=== PATIENT | female | born 1965 | race Hispanic/Latino ===

== ENCOUNTER → 2017-03-23 | Day surgery (SDC) | payer OTHER ==
[~2017-03-23] MED LIST: ASPIR 8181 MG PO; LEVOTHYROXINE PO; LEVOTHYROXINE50 MCG PO; LISINOPRIL-HCT1 EAC1 PO; METOPROLOL TART50 MG PO; MIDAZOLAM HCL 2 MG/2 ML VIAL ONE; PROPOFOL IV EMULSION 10 MG/ML 20 ML VIAL ONE; TYLENOL WITH C1 EACH PO
== END | disposition home or self-care (01) ==
LOC: OR 11:45
PROVIDERS: ATTEND Internal Medicine Gastroenterology
DX: Z12.11 Encounter for screening for malignant neoplasm of colon (principal); E66.01 Morbid (severe) obesity due to excess calories; I10 Essential (primary) hypertension; R76.8 Other specified abnormal immunological findings in serum; R74.0 Nonspecific elevation of levels of transaminase and lactic acid dehydrogenase [LDH]; K76.0 Fatty (change of) liver, not elsewhere classified; J45.909 Unspecified asthma, uncomplicated; G47.30 Sleep apnea, unspecified; Z01.810 Encounter for preprocedural cardiovascular examination; Z79.82 Long term (current) use of aspirin; Z68.41 Body mass index [BMI] 40.0-44.9, adult; Z87.891 Personal history of nicotine dependence
CPT/HCPCS: 45378; 81025; 93005; J2250

== ENCOUNTER → 2018-10-09 | Day surgery (SDC) | payer OTHER ==
[2018-10-07 10:40] LABS: BASOPHILS % 0.4 % (0.0-1.0); EOSINOPHILS # (AUTO) 0.3 (0.0-0.4); EOSINOPHILS % 3.6 % (0.0-6.0); HEMATOCRIT 37.9 % (34.2-44.1); LYMPHOCYTES # (AUTO) 2.1 (1.0-3.2); LYMPHOCYTES % 29.1 % (18.0-39.1); MEAN CORPUSCULAR HEMOGLOBIN 26.9 pg (28-32); MEAN CORPUSCULAR HGB CONC 31.7 g/dL (31-35); MONOCYTES # (AUTO) 0.5 (0.2-0.8); MONOCYTES % 6.5 % (4.4-11.3); NEUTROPHILS # (AUTO) 4.3 (2.1-6.9); NEUTROPHILS % 60.1 % (38.7-80.0); PLATELET COUNT 251 x10e3/uL (140-360); RED BLOOD COUNT 4.46 x10e6/uL (3.6-5.1); RED CELL DISTRIBUTION WIDTH 13.7 % (11.7-14.4)
[2018-10-07 10:51] LABS: INR 0.88; PROTHROMBIN TIME 12.4 seconds (11.9-14.5)
[2018-10-07 10:58] LABS: ALANINE AMINOTRANSFERASE 62 IU/L (0-55); ALBUMIN 4.1 g/dL (3.5-5.0); ALBUMIN/GLOBULIN RATIO 0.9 (0.8-2.0); ALKALINE PHOSPHATASE 137 IU/L (40-150); ANION GAP 14.2 mmol/L (8-16); BLOOD UREA NITROGEN 10 mg/dL (7-26); BUN/CREATININE RATIO 11 (6-25); CALCIUM 10.5 mg/dL (8.4-10.2); CARBON DIOXIDE 33 mmol/L (22-29); CHLORIDE 98 mmol/L (98-107); CREATININE, SERUM 0.87 mg/dL (0.57-1.11); EST GLOMERULAR FILTRATION RATE > 60 ML/MIN (60-); GLUCOSE 118 mg/dL (74-118); POTASSIUM 3.2 mmol/L (3.5-5.1); SODIUM 142 mmol/L (136-145)
[2018-10-09] VITALS (9 sets, daily range): BP systolic 102–127; BP diastolic 66–81
[~2018-10-09] VITALS: Ht 157.5 cm; Wt 99.8 kg
[~2018-10-09] MED LIST changes: +CARDIZEM120 MG PO; +FENTANYL CITRATE/PF 100MCG/2 ML INJ ONE; +FLONASE; +HEPARIN SOD/SOD CHLORIDE 2,000 ML ONE; +IOPAMIDOL 370 MG/ML 200 ML INFUS..BTL INJ ONE; +LIDOCAINE HCL 2% LOCAL 20 ML VIAL ONE; +LOSARTAN POTAS100 MG PO; +NAPROXEN250 MG PO; +PANTOPRAZOLE SO40 MG PO; +PEPCID20 MG PO; +PRAVACHOL40 MG PO; +PRAVASTATIN SOD80 MG PO; +PROAIR HFA INH8.5 GM INH; -PROPOFOL IV EMULSION 10 MG/ML 20 ML VIAL ONE; +SODIUM CHLORIDE 0.9% 1000ML 1,000 ML ONE; +SYMBICORT 16010.2 GM INH; +TORSEMIDE10 MG PO; +VERAPAMIL HCL 2.5 MG/ML 2 ML VIAL ONE
--- OUTSIDE RECORDS SUMMARY | 2018-10-09 08:24 | XMS REPORT ---
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 Info Not Available Non Drug Allergy Problems Problem Type Condition Code Onset Dates Condition Status Problem Essential (primary) hypertension I10 Active Problem Hypothyroidism E03.9 Active Problem Hepatitis C B19.20 Active Problem Other polyneuropathy G62.89 Active Problem Other and unspecified hyperlipidemia E78.5 Active Problem BMI 40.0-44.9, adult Z68.41 Active Problem Abnormal LFTs R79.89 Active Problem Body mass index (BMI) of 40.1 to 44.9 in adult Z68.41 Active Problem Morbid obesity, unspecified obesity type E66.01 Active Problem Prediabetes R73.03 Active Assessment Prediabetes R73.03 Active Assessment Hepatitis C B19.20 Active Assessment Other polyneuropathy G62.89 Active Assessment Essential (primary) hypertension I10 Active Problem Hypertensive heart disease I11.9 Active Assessment Hypothyroidism E03.9 Active Problem Abnormal EKG R94.31 Active Assessment Hypertensive heart disease I11.9 Active Problem Contact dermatitis L25.9 Active Medications Medication Code System Code Instructions Start Date End Date Status Dosage Flonase NDC 0 50 MCG/DOSE Nasally Once a day September 07, 2016 Active 1 spray in each nostril Levothyroxine Sodium [facility] [address]-99 50 MCG Orally Once a day August 02, 2015 Active 1 tablet Zithromax [facility] [address]-79 250 MG Orally Once a day Active 2 tablets on the first day, then 1 tablet daily for 4 days PredniSONE [facility] [address]-20 20 MG Orally Once a day Active 1 tablet Lisinopril-Hydrochlorothiazide [facility] [address]-88 20-25 MG Orally twice a day August 30, 2016 Active 1 tablet Aspirin [facility] [address]-73 81 MG Active TAKE 1 TABLET BY MOUTH ONCE DAILY ProAir HFA [facility] [address]-06 108 (90 Base) MCG/ACT Inhalation every 4 hrs Active 2 puffs as needed Metoprolol Succinate ER [facility] [address]-78 25 MG Orally twice a day (bid) Active 1 tablet Vital Signs Date/Time: Jan 02, 2017 BMI 40.95 Index Weight 229 lbs Height 62.7 in Temperature 98.0 F Cardiac Monitoring Heart Rate 65 /min Blood Pressure Diastolic 77 mm Hg Blood Pressure Systolic 124 mm Hg Results No Known Results Summary Purpose eClinicalWorks Submission
--- OUTSIDE RECORDS SUMMARY | 2018-10-09 08:24 | XMS REPORT ---
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 [address]-58 20-25 MG Orally twice a day August 30, 2016 Active [address] [facility] [address]-64 81 MG by mouth every day (qd) Active TAKE 1 TABLET BY MOUTH ONCE DAILY Metoprolol Succinate ER [facility] [address]-01 25 MG Orally twice a day (bid) Active 1 tablet Levothyroxine Sodium [facility] [address]-56 50 MCG Orally Once a day August 02, 2015 Active 1 tablet Results No Known Results Summary Purpose eClinicalWorks Submission
--- OUTSIDE RECORDS SUMMARY | 2018-10-09 08:24 | XMS REPORT ---
Author Author Trevor Zamudio Organization [employer] Address Unknown Phone Unavailable Care Team Providers Care Cena Name Role Phone Trevor Zamudio CP Unavailable Allergies, Adverse Reactions, Alerts Substance Reaction Event Type N.K.D.A. Info Not Available Non Drug Allergy Problems Problem Type Condition Code Onset Dates Condition Status Problem Contact dermatitis L25.9 Active Problem Hepatitis C B19.20 Active Problem Essential (primary) hypertension I10 Active Problem Other and unspecified hyperlipidemia E78.5 Active Problem Morbid obesity, unspecified obesity type E66.01 Active Problem BMI 40.0-44.9, adult Z68.41 Active Problem Body mass index (BMI) of 40.1 to 44.9 in adult Z68.41 Active Problem Hypothyroidism E03.9 Active Problem Prediabetes R73.03 Active Problem Abnormal LFTs R79.89 Active Assessment Wart of scalp B07.9 Active Assessment Essential (primary) hypertension I10 Active Assessment Bilateral otitis media, unspecified chronicity, unspecified otitis media type H66.93 Active Assessment Morbid obesity, unspecified obesity type E66.01 Active Problem Hypertensive heart disease I11.9 Active Assessment Hypothyroidism E03.9 Active Problem Abnormal EKG R94.31 Active Medications Medication Code System Code Instructions Start Date End Date Status Dosage Flonase NDC 0 50 MCG/DOSE Nasally Once a day September 07, 2016 Active 1 spray in each nostril Levaquin [facility] [address]-83 500 MG Orally Once a day October 05, 2016 October 15, 2016 Active 1 tablet Medrol (De) NDC 0 4 MG Orally as directed October 05, 2016 October 11, 2016 Active as directed ProAir HFA [facility] [address]-52 108 (90 Base) MCG/ACT Inhalation every 4 hrs Active 2 puffs as needed Levothyroxine Sodium [facility] [address]-27 50 MCG Orally Once a day August 02, 2015 Active 1 tablet Metoprolol Succinate NDC 0 50 MG Orally Active not defined Metoprolol Succinate ER [facility] [address]-73 25 MG Orally twice a day (bid) Active 1 tablet Lisinopril-Hydrochlorothiazide [facility] [address]-50 20-25 MG Orally twice a day August 30, 2016 Active 1 tablet Aspirin [facility] [address]-92 81 MG Active TAKE 1 TABLET BY MOUTH ONCE DAILY Vital Signs Date/Time: October 05, 2016 BMI 40.77 Index Weight 228.0 lbs Height 62.7 in Temperature 98.2 F Cardiac Monitoring Heart Rate 62 /min Blood Pressure Diastolic 88 mm Hg Blood Pressure Systolic 148 mm Hg Results No Known Results Summary Purpose eClinicalWorks Submission
--- OUTSIDE RECORDS SUMMARY | 2018-10-09 08:24 | XMS REPORT ---
Author Author Trevor Zamudio Organization [employer] Address Unknown Phone Unavailable Care Team Providers Care Mixer Operator Tablets Name Role Phone Trevor Zamudio CP Unavailable Allergies No Known Allergies Problems Problem Type Condition Code Onset Dates Condition Status Problem Hepatitis C B19.20 Active Problem Abnormal LFTs R79.89 Active Problem Body mass index (BMI) of 40.1 to 44.9 in adult Z68.41 Active Problem Acute on chronic diastolic HF (heart failure) I50.33 Active Problem Seasonal allergic rhinitis due to other allergic trigger J30.89 Active Problem FIDEL (obstructive sleep apnea) G47.33 Active Problem Morbid obesity, unspecified obesity type E66.01 Active Problem Other and unspecified hyperlipidemia E78.5 Active Problem Other polyneuropathy G62.89 Active Problem Prediabetes R73.03 Active Problem Contact dermatitis L25.9 Active Problem Hypertensive heart disease I11.9 Active Problem Abnormal EKG R94.31 Active Problem Essential (primary) hypertension I10 Active Problem Hypothyroidism E03.9 Active Medications No Known Medications Results No Known Results Summary Purpose eClinicalWorks Submission
--- OUTSIDE RECORDS SUMMARY | 2018-10-09 08:24 | XMS REPORT | Continuity of Care Document ---
Author Author [facility] Interface Address Unknown Phone Unavailable Problems Problem Status Onset Date Classification Date Reported Comments Source XRAY Active 09/21/2017 [facility] Pain in right hip 09/11/2017 01/10/2018 [facility] R HIP Active 09/03/2017 [facility] Abnormal EKG Active Problem 09/10/2018 2.16.840.1.428768.4.391.11.78978 Hypothyroidism Active Problem 09/10/2018 2.16.840.1.244428.4.391.11.85622 Hepatitis C Active Problem 09/10/2018 2.16.840.1.884939.4.391.11.20116 Other polyneuropathy Active Problem 09/10/2018 2.16.840.1.935230.4.391.11.14783 Prediabetes Active Problem 09/10/2018 2.16.840.1.985937.4.391.11.75081 Abnormal LFTs Active Problem 09/10/2018 2.16.840.1.516048.4.391.11.54169 Body mass index of 40.1 to 44.9 in adult Active Problem 09/10/2018 2.16.840.1.639904.4.391.11.55476 Other and unspecified hyperlipidemia Active Problem 09/10/2018 2.16.840.1.206443.4.391.11.19465 Morbid obesity, unspecified obesity type Active Problem 09/10/2018 2.16.840.1.364937.4.391.11.51194 Essential hypertension Active Problem 09/10/2018 2.16.840.1.665031.4.391.11.47265 Contact dermatitis Active Problem 09/10/2018 2.16.840.1.154837.4.391.11.27725 Hypertensive heart disease Active Problem 09/10/2018 2.16.840.1.350049.4.391.11.91217 Wart of scalp Active Diagnosis 10/17/2016 2.16.840.1.091476.4.391.11.13555 Bilateral otitis media, unspecified chronicity, unspecified otitis media type Active Diagnosis 01/27/2017 2.16.840.1.321558.4.391.11.00507 Bronchitis Active Diagnosis 11/16/2016 2.16.840.1.111350.4.391.11.45350 Seasonal allergic rhinitis due to other allergic trigger Active Problem 09/10/2018 2.16.840.1.157048.4.391.11.69767 Sciatica associated with disorder of lumbar spine Active Diagnosis 10/10/2017 2.16.840.1.460120.4.391.11.83780 Sciatica associated with disorder of lumbar spine Active Diagnosis 09/28/2017 2.16.840.1.951709.4.391.11.49796 Encounter for general adult medical examination with abnormal findings Active Diagnosis 09/06/2017 2.16.840.1.847529.4.391.11.83077 Cardiomyopathy Active Diagnosis 08/14/2015 2.16.840.1.459542.4.391.11.61089 Abnormal liver function Active Diagnosis 07/27/2015 2.16.840.1.692745.4.391.11.34706 Acute on chronic diastolic HF Active Problem 09/10/2018 2.16.840.1.679718.4.391.11.14776 FIDEL Active Problem 09/10/2018 2.16.840.1.895339.4.391.11.19264 Obesity Active Diagnosis 07/23/2015 2.16.840.1.668019.4.391.11.55665 Knee pain Active Diagnosis 07/23/2015 2.16.840.1.541901.4.391.11.49209 Encounter for immunization Active Diagnosis 03/11/2016 2.16.840.1.393473.4.391.11.22019 Moderate persistent asthma with exacerbation Active Diagnosis 11/13/2017 2.16.840.1.747989.4.391.11.38924 Acute serous otitis media of right ear without rupture Active Diagnosis 04/14/2016 2.16.840.1.101274.4.391.11.07846 Pure hypercholesterolemia Active Problem 04/14/2016 2.16.840.1.036892.4.391.11.02764 Impacted cerumen of right ear Active Diagnosis 04/14/2016 2.16.840.1.272083.4.391.11.21732 Acute bronchitis, antibiotics not indicated Active Diagnosis 04/14/2016 2.16.840.1.599962.4.391.11.00826 Otitis media, unspecified chronicity, unspecified laterality, unspecified otitis media type Active Diagnosis 09/18/2016 2.16.840.1.133125.4.391.11.71357 Nasal congestion Active Diagnosis 09/18/2016 2.16.840.1.706639.4.391.11.12868 Prediabetes Active Diagnosis 03/11/2016 2.16.840.1.134333.4.391.11.93694 Closed displaced fracture of distal phalanx of right thumb with routine healing, subsequent encounter Active Diagnosis 07/07/2016 2.16.840.1.471443.4.391.11.01164 Trigger middle finger of left hand Active Problem 09/10/2018 2.16.840.1.316207.4.391.11.37581 Chronic diastolic HF Active Problem 09/10/2018 2.16.840.1.669007.4.391.11.66640 Pain in left shoulder Active Diagnosis 05/18/2018 2.16.840.1.289028.4.391.11.47675 Pain in right shoulder Active Diagnosis 05/18/2018 2.16.840.1.650259.4.391.11.75203 Medications Medication Details Route Status Patient Instructions Ordering Provider Order Date Source Cardizem 1 tablet before meals Orally Active 120 MG Orally once a day Robb 09/09/2018 2.16.840.1.247117.4.391.11.38697 Pepcid 1 tablet at bedtime Orally Active 20 mg Orally twice a day (bid) Robb 05/06/2018 2.16.840.1.373859.4.391.11.78246 Naprosyn 1 tablet with food or milk as needed Orally Active 500 mg Orally every 12 hrs Robb 05/06/2018 2.16.840.1.333162.4.391.11.73913 Ergocalciferol 1 capsule Orally Active 93041 UNIT Orally ONCE A WEEK Robb 11/29/2017 2.16.840.1.174607.4.391.11.96747 Lasix 1 tablet Orally Active 80 mg Orally Once a day Robb 11/12/2017 2.16.840.1.932780.4.391.11.12131 Klor-Con M20 1 tablet with food Orally Active 20 MEQ Orally twice a day (bid) Robb 11/12/2017 2.16.840.1.616104.4.391.11.37626 Symbicort 2 puffs Inhalation Active 160-4.5 MCG/ACT Inhalation Twice a day Robb 10/19/2017 2.16.840.1.806013.4.391.11.27422 Ceftin 1 tablet Orally Active 500 mg Orally Twice a day Robb 10/12/2017 2.16.840.1.886841.4.391.11.35620 Tramadol HCl 1 tablet as needed Orally Active 50 mg Orally every 6 hrs Robb 10/04/2017 2.16.840.1.869256.4.391.11.87179 Flexeril 1 tablet as needed Orally Active 10 mg Orally twice a day (bid) Robb 09/20/2017 2.16.840.1.725395.4.391.11.58579 Medrol (De) 1 tablet Orally Active 4 mg Orally as directed Robb 09/20/2017 2.16.840.1.315307.4.391.11.81542 Zantac 1 tablet at bedtime Orally Active 150 MG Orally twice a day (bid) Robb 09/03/2017 2.16.840.1.017633.4.391.11.16258 Nasacort AQ 1 puff in each nostril Nasally Active 55 MCG/ACT Nasally Once a day Robb 09/03/2017 2.16.840.1.211573.4.391.11.80515 Claritin 1 tablet Orally Active 10 mg Orally Once a day Robb 09/03/2017 2.16.840.1.756350.4.391.11.86732 Losartan Potassium-HCTZ 1 tablet Orally Active 50-12.5 MG Orally Once a day Robb 09/03/2017 2.16.840.1.927918.4.391.11.34695 Naprosyn 1 tablet with food or milk as needed Orally Active 500 mg Orally every 12 hrs Robb 09/03/2017 2.16.840.1.213122.4.391.11.19517 Metoprolol Succinate ER 1 tablet Orally Active 25 MG Orally twice a day (bid) Robb 03/07/2017 2.16.840.1.722786.4.391.11.12031 Lisinopril-Hydrochlorothiazide 1 tablet Orally Active 20-25 MG Orally twice a day Robb 01/30/2017 2.16.840.1.951062.4.391.11.72268 Levaquin 1 tablet Orally Active 500 MG Orally Once a day Robb 11/07/2016 2.16.840.1.874651.4.391.11.73374 Tessalon Perles 1 capsule as needed Orally Active 100 MG Orally Three times a day Robb 11/07/2016 2.16.840.1.101002.4.391.11.37718 Levaquin 1 tablet Orally Active 500 MG Orally Once a day Robb 10/05/2016 2.16.840.1.756625.4.391.11.71057 Medrol (De) as directed Orally Active 4 MG Orally as directed Robb 10/05/2016 2.16.840.1.585968.4.391.11.59710 Flonase 1 spray in each nostril Nasally Active 50 MCG/DOSE Nasally Once a day Robb 09/07/2016 2.16.840.1.172263.4.391.11.51893 Flonase 1 spray in each nostril Nasally Active 50 MCG/DOSE Nasally as needed (prn) Robb 09/07/2016 2.16.840.1.507507.4.391.11.10887 Augmentin as directed Orally Active 500-125 MG Orally every 12 hrs Robb 09/07/2016 2.16.840.1.845047.4.391.11.40089 Dary Allergy 1 tablet as needed Orally Active 60 MG Orally Twice a day Robb 09/07/2016 2.16.840.1.322825.4.391.11.21586 Lisinopril-Hydrochlorothiazide 1 tablet Orally Active 20-25 MG Orally twice a day Robb 08/30/2016 2.16.840.1.303611.4.391.11.25904 Aspir-81 1 tablet Orally Active 81 MG Orally Once a day Robb 07/27/2016 2.16.840.1.422329.4.391.11.78937 Pepcid 1 tablet at bedtime Orally Active 20 MG Orally twice a day (bid) Robb 07/04/2016 2.16.840.1.746434.4.391.11.66612 Naprosyn 1 tablet as needed Orally Active 500 MG Orally every 12 hrs Robb 07/04/2016 2.16.840.1.685065.4.391.11.97832 Qvar 1 puff Inhalation Active 80 MCG/ACT Inhalation Twice a day Robb 03/24/2016 2.16.840.1.047803.4.391.11.82104 Lisinopril-Hydrochlorothiazide 1 tablet Orally Active 20-25 MG Orally Once a day Robb 02/25/2016 2.16.840.1.221088.4.391.11.30350 Levothyroxine Sodium 1 tablet Orally Active 50 MCG Orally Once a day Robb 08/02/2015 2.16.840.1.999497.4.391.11.92270 Levothyroxine Sodium 1 tablet Orally Active 50 MCG Orally Once a day Robb 08/02/2015 2.16.840.1.166745.4.391.11.47094 Levothyroxine Sodium 1 tablet Orally Active 50 MCG Orally Once a day Robb 08/02/2015 2.16.840.1.333195.4.391. Lisinopril-Hydrochlorothiazide 1 tablet Orally Active 10-12.5 MG Orally Once a day Robb 08/02/2015.840.1.639250.4.391. Diprolene 1 application to affected area Externally Active 0.05 % Externally Once a day Robb 07/15/2015 2.16840.1.445517.4.391.11 Lisinopril-Hydrochlorothiazide 1 tablet Orally Active 20-12.5 MG Orally Once a day Robb 07/15/2015.0.1.055537.4.391.11. Osteo Bi-Flex Adv Double St as directed Orally Active 1 tablet Orally daily Robb 07/15/2015.0.1.174516.4.391. Toprol XL 1 tablet Orally Active 100 mg Orally Once a day Robb 07/15/2015.0.1.141775.4.391. Metoprolol Succinate ER 1 tablet Orally Active 25 MG Orally twice a day (bid) Robb 07.13.830.1.012984.4.391. ProAir HFA 2 puffs as needed Inhalation Active 108 (90 Base) MCG/ACT Inhalation every 4 hrs Robb 07.13.830.1.089193.4.391. Metoprolol Succinate not defined Orally Active 50 MG Orally Robb 07.13.830.1.833705.4.391. Metoprolol Succinate ER 1 tablet Orally Active 25 MG Orally twice a day (bid) Robb 07.13.830.1.592813.4.391. Aspirin TAKE 1 TABLET BY MOUTH ONCE DAILY by mouth Active 81 MG by mouth every day (qd) Robb 07.13.830.1.980294.4.391. PredniSONE 1 tablet Orally Active 20 MG Orally Once a day Robb 07.13.830.1.436784.4.391. Zithromax 2 tablets on the first day, then 1 tablet daily for 4 days Orally Active 250 MG Orally Once a day Robb 2.16.840.1.617976.4.391 Aspirin TAKE 1 TABLET BY MOUTH ONCE DAILY by mouth Active 81 MG by mouth every day (qd) Robb 07.13.830.1.502915.4.391 ProAir HFA 2 puffs as needed Inhalation Active 108 (90 Base) MCG/ACT Inhalation every 4 hrs Robb 07.13.830.1.130765.4.391 PredniSONE 1 tablet Orally Active 20 MG Orally Once a day Robb 07.13.830.1.782844.4.391 Zithromax 2 tablets on the first day, then 1 tablet daily for 4 days Orally Active 250 MG Orally Once a day Robb 07.13.830.1.346997.4.391 Furosemide 1 tablet Orally Active 20 MG Orally Once a day Robb 07.13.830.1.253165.4.391 Pravastatin Sodium 1 tablet Orally Active 80 mg Orally Once a day Robb 07.13.830.1.512289.4.391 Metoprolol Succinate Unknown Orally Active 50 MG Orally Robb 07.13.830.1.584508.4.391 Pravastatin Sodium 1 tablet Orally Active 40 MG Orally Once a day Robb 07.13.830.1.091844.4.391 Losartan Potassium 1 tablet Orally Active 100 mg Orally Once a day Robb 07.13.830.1.474112.4.391 Furosemide 1 tablet Orally Active 80 MG Orally Once a day Robb 07.13.830.1.200405.4.391 Klor-Con 1 packet with food Orally Active 20 MEQ Orally Once a day Robb 07.13.830.1.090261.4.391 Micro-K 1 capsule with food Orally Active 10 MEQ Orally Twice a day Robb 07.13.830.1.072984.4.391 Medrol (De) not defined Orally Active 4 MG Orally Robb 07.13.830.1.003773.4.391 Pantoprazole Sodium 1 tablet Orally Active 40 MG Orally Once a day Robb 07.13.830.1.791279.4.391 Torsemide 2 tablet Orally Active 20 mg Orally twice a day (bid) Robb 07.13.830.1.105787.4.391 Metoprolol Tartrate 1 tablet Orally Active 25 MG Orally Twice a day Robb 07.13.830.1.512561.4.391 Lisinopril-Hydrochlorothiazide 1 tablet Orally Active 10-12.5 MG Orally Once a day Robb 07.13.830.1.763863.4.391 Lisinopril 1 tablet Orally No Longer Active 5 MG Orally Once a day Robb 07.13.830.1.212300.4391 Losartan Potassium 1 tablet Orally Active 100 mg Orally Once a day Robb 07.13.830.1.476861.4.391 Naprosyn 1 tablet with food or milk as needed Orally Active 500 mg Orally once a day prn Robb 07.13.830.1.810573.4391 Symbicort 2 puffs Inhalation Active 160-4.5 MCG/ACT Inhalation as needed (prn) Robb 07.13.830.1.901562.4.391 Pepcid 1 tablet at bedtime Orally Active 20 mg Orally twice a day (bid) Robb 07.13.830.1.118848.4.391 Levothyroxine Sodium 1 tablet Orally Active 50 MCG Orally Once a day Robb 07.13.830.1.804844.4.391 Aspirin TAKE 1 TABLET BY MOUTH ONCE DAILY by mouth Active 81 MG by mouth every day (qd) Robb 07.13.830.1.141963.4.391 Torsemide 2 tablet Orally Active 20 mg Orally twice a day (bid) Robb 07.13.830.1.001479.4.391 Pravachol TAKE 1 TABLET AT BEDTIME NA Active 40 MG Robb 840.1.973590.4.391 Metoprolol Succinate ER 1 tablet Orally Active 25 MG Orally twice a day (bid) Robb 840.1.630930.4.391 Flonase 1 spray in each nostril Nasally Active 50 MCG/DOSE Nasally Once a day Robb 840.1.806206.4391 Cozaar TAKE 1 TABLET EVERY DAY NA Active 100 MG Robb 840.1.993392.4.391 ProAir HFA 2 puffs as needed Inhalation Active 108 (90 Base) MCG/ACT Inhalation as needed (prn) Robb 840.1.567094.4391 Pravachol TAKE 1 TABLET AT BEDTIME NA Active 40 MG Robb 840.1.596664.4 ProAir HFA 2 puffs as needed Inhalation Active 108 (90 Base) MCG/ACT Inhalation as needed (prn) Robb 840.1.397672.4391 Cozaar TAKE 1 TABLET EVERY DAY NA Active 100 MG Robb 840.1.326555.4.391 Allergies, Adverse Reactions, Alerts Substance Category Reaction Severity Reaction type Status Date Reported Comments Source N.K.D.A. Adverse Reaction Info Not Available Adverse Reaction Active 01/02/2017 2.840.1.964589.4.391 lisinopril Adverse Reaction cough Adverse Reaction Active 09/02/2018.16840.1.914305.4.391 Immunizations Immunization Date Given Site Status Last Updated Comments Source FLU VACCINE NO PRESERV 3 & > 02/25/2016 completed 2.840.1.350788.4.39168 Influenza 07/15/2015 completed 840.1.802049.4.391.11.98122 Results Order Name Results Value Reference Range Date Interpretation Comments Source Spine lumbar 2 or 3 views DX Spine lumbar 2 or 3 views DX Patient Name: ARUNA ALVARADO : 1965; Age: 52 years Female MR: [id number] Study: Spine lumbar 2 or 3 views DX 09/21/2017 7:59 AM CDT CLINICAL INDICATION: - M53.9 Dorsopathy, unspecified right lower summary pain COMPARISON: None FINDINGS: Views and laterality: Lumbar spine 3 views There are 5 nonrib-bearing lumbar type vertebral bodies. The lumbar vertebral bodies are of normal height and alignment. No acute fracture. No subluxation. No significant disc space narrowing. Mild facet arthropathy at L5-S1. No gross soft tissue abnormalities. IMPRESSION: No acute lumbar spine abnormalities. Mild facet arthropathy at L5-S1. SL: [id number] 09/21/2017 - - Read by: Elza Abraham MD Dictated Date/time: 09/21/17 08:41 Electronically Signed by: Elza Abraham MD 09/21/17 08:42 FINAL REPORT [facility] Hip 2/3 views uni w pelvis DX Hip 2/3 views uni w pelvis DX Patient Name: ARUNA ALVARADO : 1965; Age: 52 years Female MR: [id number] Study: Hip 2/3 views uni w pelvis DX 09/03/2017 10:28 AM CDT CLINICAL INDICATION: - M25.551 Pain in right hip COMPARISON: None FINDINGS: Views and laterality: Right hip 2 views No displaced fracture or dislocation. The right hip articulation is intact without significant narrowing or erosion. No gross soft tissue abnormalities. IMPRESSION: No acute bony abnormalities. SL: [id number] 09/03/2017 - - Read by: Elza Abraham MD Dictated Date/time: 09/03/17 10:47 Electronically Signed by: Elza Abraham MD 09/03/17 10:47 FINAL REPORT [facility] Vital Signs Vital Sign Value Date Comments Source Weight 236.7 09/02/2018 2.16.840.1.683846.4.391.11.39453 Height 62.7 09/02/2018 2.16.840.1.360710.4.391.11.01133 Temperature Oral (F) 96.7 F 09/02/2018 2.16.840.1.419794.4.391.11.80917 Heart Rate 68 09/02/2018 2.16.840.1.903966.4.391.11.54144 Diastolic (mm Hg) 60 09/02/2018 2.16.840.1.417901.4.391.11.88989 Systolic (mm Hg) 123 09/02/2018 2.16.840.1.058589.4.391.11.37440 Weight 247.9 05/06/2018 2.16.840.1.691773.4.391.11.82465 Height 62.7 05/06/2018 2.16.840.1.563589.4.391.11.31464 Temperature Oral (F) 96.6 F 05/06/2018 2.16.840.1.630643.4.391.11.94152 Heart Rate 74 05/06/2018 2.16.840.1.975004.4.391.11.20865 Diastolic (mm Hg) 70 05/06/2018 2.16.840.1.575856.4.391.11.65923 Systolic (mm Hg) 136 05/06/2018 2.16.840.1.039289.4.391.11.91055 Weight 243.8 12/06/2017 2.16.840.1.468836.4.391.11.83094 Height 62.7 12/06/2017 2.16.840.1.423874.4.391.11.82022 Heart Rate 71 12/06/2017 2.16.840.1.750011.4.391.11.10242 Diastolic (mm Hg) 70 12/06/2017 2.16.840.1.062424.4.391.11.34845 Systolic (mm Hg) 116 12/06/2017 2.16.840.1.531867.4.391.11.32833 Weight 248.2 11/12/2017 2.16.840.1.682183.4.391.11.84960 Height 62.7 11/12/2017 2.16.840.1.621117.4.391.11.95603 Temperature Oral (F) 98.3 F 11/12/2017 2.16.840.1.897869.4.391.11.40707 Heart Rate 69 11/12/2017 2.16.840.1.085235.4.391.11.79006 Diastolic (mm Hg) 93 11/12/2017 2.16.840.1.462764.4.391.11.95665 Systolic (mm Hg) 167 11/12/2017 2.16.840.1.823010.4.391.11.54194 Weight 239.8 10/19/2017 2.16.840.1.073785.4.391.11.33431 Height 62.7 10/19/2017 2.16.840.1.534125.4.391.11.07361 Temperature Oral (F) 9.2 F 10/19/2017 2.16.840.1.597936.4.391.11.70719 Heart Rate 70 10/19/2017 2.16.840.1.723612.4.391.11.00390 Diastolic (mm Hg) 81 10/19/2017 2.16.840.1.712884.4.391.11.08586 Systolic (mm Hg) 138 10/19/2017 2.16.840.1.007282.4.391.11.99461 Weight 240.9 10/04/2017 2.16.840.1.850316.4.391.11.85105 Height 62.7 10/04/2017 2.16.840.1.203327.4.391.11.37876 Temperature Oral (F) 98.9 F 10/04/2017 2.16.840.1.326290.4.391.11.59350 Heart Rate 72 10/04/2017 2.16.840.1.674367.4.391.11.02858 Diastolic (mm Hg) 71 10/04/2017 2.16.840.1.200348.4.391.11.96783 Systolic (mm Hg) 137 10/04/2017 2.16.840.1.494877.4.391.11.92659 Weight 238.3 09/20/2017 2.16.840.1.008242.4.391.11.26377 Height 62.7 09/20/2017 2.16.840.1.075297.4.391.11.90991 Temperature Oral (F) 98.4 F 09/20/2017 2.16.840.1.793908.4.391.11.11404 Heart Rate 76 09/20/2017 2.16.840.1.613183.4.391.11.17714 Diastolic (mm Hg) 81 09/20/2017 2.16.840.1.070412.4.391.11.00604 Systolic (mm Hg) 125 09/20/2017 2.16.840.1.966884.4.391.11.51335 Weight 238.1 09/03/2017 2.16.840.1.156364.4.391.11.73951 Height 62.7 09/03/2017 2.16.840.1.718998.4.391.11.82362 Temperature Oral (F) 98.9 F 09/03/2017 2.16.840.1.021986.4.391.11.21571 Heart Rate 69 09/03/2017 2.16.840.1.936672.4.391.11.65277 Diastolic (mm Hg) 62 09/03/2017 2.16.840.1.567345.4.391.11.55492 Systolic (mm Hg) 115 09/03/2017 2.16.840.1.756798.4.391.11.84641 Weight 229 01/02/2017 2.16.840.1.792757.4.391.11.97633 Height 62.7 01/02/2017 2.16.840.1.348338.4.391.11.75106 Temperature Oral (F) 98.0 F 01/02/2017 2.16.840.1.322288.4.391.11.71501 Heart Rate 65 01/02/2017 2.16.840.1.540988.4.391.11.25017 Diastolic (mm Hg) 77 01/02/2017 2.16.840.1.866182.4.391.11.01352 Systolic (mm Hg) 124 01/02/2017 2.16.840.1.518699.4.391.11.14567 Weight 229.6 11/07/2016 2.16.840.1.512435.4.391.11.01180 Height 62.7 11/07/2016 2.16.840.1.223448.4.391.11.79821 Temperature Oral (F) 99.3 F 11/07/2016 2.16.840.1.007302.4.391.11.44045 Heart Rate 64 11/07/2016 2.16.840.1.239755.4.391.11.03966 Diastolic (mm Hg) 81 11/07/2016 2.16.840.1.139151.4.391.11.70955 Systolic (mm Hg) 132 11/07/2016 2.16.840.1.307957.4.391.11.51512 Weight 228.0 10/05/2016 2.16.840.1.584786.4.391.11.09211 Height 62.7 10/05/2016 2.16.840.1.646046.4.391.11.56487 Temperature Oral (F) 98.2 F 10/05/2016 2.16.840.1.323460.4.391.11.52454 Heart Rate 62 10/05/2016 2.16.840.1.129440.4.391.11.52388 Diastolic (mm Hg) 88 10/05/2016 2.16.840.1.655681.4.391.11.94602 Systolic (mm Hg) 148 10/05/2016 2.16.840.1.494583.4.391.11.53584 Weight 228.0 09/07/2016 2.16.840.1.269406.4.391.11.85944 Height 62.7 09/07/2016 2.16.840.1.588831.4.391.11.88718 Temperature Oral (F) 98.2 F 09/07/2016 2.16.840.1.967569.4.391.11.20160 Heart Rate 62 09/07/2016 2.16.840.1.039202.4.391.11.09061 Diastolic (mm Hg) 62 09/07/2016 2.16.840.1.270935.4.391.11.10773 Systolic (mm Hg) 120 09/07/2016 2.16.840.1.729761.4.391.11.91124 Weight 231.5 07/04/2016 2.16.840.1.925966.4.391.11.54911 Height 62.7 07/04/2016 2.16.840.1.793102.4.391.11.14078 Temperature Oral (F) 98.3 F 07/04/2016 2.16.840.1.409522.4.391.11.23192 Heart Rate 68 07/04/2016 2.16.840.1.384310.4.391.11.20502 Diastolic (mm Hg) 78 07/04/2016 2.16.840.1.497414.4.391.11.89609 Systolic (mm Hg) 130 07/04/2016 2.16.840.1.070139.4.391.11.10024 Weight 230.0 03/24/2016 2.16.840.1.167825.4.391.11.79554 Height 62.7 03/24/2016 2.16.840.1.660834.4.391.11.60401 Temperature Oral (F) 98.2 F 03/24/2016 2.16.840.1.886575.4.391.11.87459 Heart Rate 81 03/24/2016 2.16.840.1.950682.4.391.11.20262 Diastolic (mm Hg) 73 03/24/2016 2.16.840.1.688670.4.391.11.44415 Systolic (mm Hg) 129 03/24/2016 2.16.840.1.990805.4.391.11.83462 Weight 228.0 02/25/2016 2.16.840.1.706259.4.391.11.00238 Height 62.7 02/25/2016 2.16.840.1.329031.4.391.11.47197 Temperature Oral (F) 97.8 F 02/25/2016 2.16.840.1.736327.4.391.11.27929 Heart Rate 62 02/25/2016 2.16.840.1.020501.4.391.11.20586 Diastolic (mm Hg) 95 02/25/2016 2.16.840.1.285742.4.391.11.22790 Systolic (mm Hg) 154 02/25/2016 2.16.840.1.265899.4.391.11.05805 Weight 231.3 11/01/2015 2.16.840.1.860164.4.391.11.54816 Height 62.7 11/01/2015 2.16.840.1.952481.4.391.11.10703 Temperature Oral (F) 97.5 F 11/01/2015 2.16.840.1.229134.4.391.11.49541 Heart Rate 62 11/01/2015 2.16.840.1.438638.4.391.11.15413 Diastolic (mm Hg) 83 11/01/2015 2.16.840.1.124321.4.391.11.49236 Systolic (mm Hg) 141 11/01/2015 2.16.840.1.334067.4.391.11.46589 Weight 229.8 09/08/2015 2.16.840.1.722074.4.391.11.15117 Height 62.7 09/08/2015 2.16.840.1.397708.4.391.11.61937 Temperature Oral (F) 97.8 F 09/08/2015 2.16.840.1.796985.4.391.11.71978 Heart Rate 69 09/08/2015 2.16.840.1.021738.4.391.11.84246 Diastolic (mm Hg) 88 09/08/2015 2.16.840.1.877125.4.391.11.11885 Systolic (mm Hg) 149 09/08/2015 2.16.840.1.270114.4.391.11.84630 Weight 229 08/02/2015 2.16.840.1.276760.4.391.11.31460 Height 62.7 08/02/2015 2.16.840.1.209889.4.391.11.24747 Temperature Oral (F) 98.1 F 08/02/2015 2.16.840.1.490535.4.391.11.19393 Heart Rate 64 08/02/2015 2.16.840.1.793975.4.391.11.77194 Diastolic (mm Hg) 90 08/02/2015 2.16.840.1.802752.4.391.11.54684 Systolic (mm Hg) 147 08/02/2015 2.16.840.1.697434.4.391.11.05957 Weight 231 07/15/2015 2.16.840.1.091069.4.391.11.97315 Height 62.7 07/15/2015 2.16.840.1.247705.4.391.11.69358 Temperature Oral (F) 98.3 F 07/15/2015 2.16.840.1.254720.4.391.11.88417 Heart Rate 90 07/15/2015 2.16.840.1.642094.4.391.11.32001 Diastolic (mm Hg) 104 07/15/2015 2.16.840.1.996802.4.391.11.74031 Systolic (mm Hg) 185 07/15/2015 2.16.840.1.722169.4.391.11.81865 Encounters Location Location Details Encounter Type Encounter Number Reason For Visit Attending Provider ADM Date DC Date Status Source [facility] Unknown [id number] 07/15/2015 07/15/2015 2.16.840.1.980694.4.391.11.62609 [facility] Unknown [id number] 07/15/2015 07/15/2015 2.16.840.1.358685.4.391.11.32194 [facility] Unknown [id number] 07/15/2015 07/15/2015 2.16.840.1.335403.4.391.11.63792 [facility] Unknown [id number] 07/15/2015 07/15/2015 2.16.840.1.940958.4.391.11.34345 [facility] Unknown [id number] 07/15/2015 07/15/2015 2.16.840.1.956963.4.391.11.34254 [facility] Unknown [id number] 07/15/2015 07/15/2015 2.16.840.1.997800.4.391.11.77328 [facility] Unknown [id number] 07/15/2015 07/15/2015 2.16.840.1.278410.4.391.11.80536 [facility] Unknown [id number] 07/15/2015 07/15/2015 2.16.840.1.493394.4.391.11.12201 [facility] Unknown [id number] 07/15/2015 07/15/2015 2.16.840.1.591542.4.391.11.78218 [facility] Unknown [id number] 07/15/2015 07/15/2015 2.16.840.1.718068.4.391.11.72231 [facility] Unknown [id number] 07/26/2015 07/26/2015 2.16.840.1.764349.4.391.11.64985 [facility] Unknown [id number] 07/26/2015 07/26/2015 2.16.840.1.998238.4.391.11.08030 [facility] Unknown [id number] 07/26/2015 07/26/2015 2.16.840.1.937172.4.391.11.93799 [facility] Unknown [id number] 07/26/2015 07/26/2015 2.16.840.1.567272.4.391.11.44918 [facility] Unknown [id number] 07/26/2015 07/26/2015 2.16.840.1.559167.4.391.11.55453 [facility] Unknown [id number] 07/26/2015 07/26/2015 2.16.840.1.474618.4.391.11.40768 [facility] Unknown [id number] 07/26/2015 07/26/2015 2.16.840.1.379307.4.391.11.35200 [facility] Unknown [id number] 07/26/2015 07/26/2015 2.16.840.1.882428.4.391.11.72439 [facility] Unknown [id number] 07/26/2015 07/26/2015 2.16.840.1.040173.4.391.11.90123 [facility] 2 WEEK FOLLOW UP [id number] 08/02/2015 08/02/2015 2.16.840.1.400217.4.391.11.26054 [facility] 2 WEEK FOLLOW UP [id number] 08/02/2015 08/02/2015 2.16.840.1.304093.4.391.11.03679 [facility] 2 WEEK FOLLOW UP [id number] 08/02/2015 08/02/2015 2.16.840.1.161199.4.391.11.03731 [facility] 2 WEEK FOLLOW UP [id number] 08/02/2015 08/02/2015 2.16.840.1.910236.4.391.11.50956 [facility] 2 WEEK FOLLOW UP [id number] 08/02/2015 08/02/2015 2.16.840.1.765190.4.391.11.47232 [facility] 2 WEEK FOLLOW UP [id number] 08/02/2015 08/02/2015 2.16.840.1.264365.4.391.11.34135 [facility] 2 WEEK FOLLOW UP [id number] 08/02/2015 08/02/2015 2.16.840.1.462034.4.391.11.83977 [facility] [id number] 08/10/2015 08/10/2015 2.16.840.1.954669.4.391.11.74460 [facility] ECHO [id number] 08/10/2015 08/10/2015 2.16.840.1.376024.4.391.11.15387 [facility] ECHO [id number] 08/10/2015 08/10/2015 2.16.840.1.281965.4.391.11.59199 [facility] ECHO [id number] 08/10/2015 08/10/2015 2.16.840.1.967340.4.391.11.39314 [facility] ECHO [id number] 08/10/2015 08/10/2015 2.16.840.1.950707.4.391.11.76504 [facility] ECHO [id number] 08/10/2015 08/10/2015 2.16.840.1.778865.4.391.11.60194 [facility] ECHO [id number] 08/10/2015 08/10/2015 2.16.840.1.760537.4.391.11.77576 [facility] ECHO [id number] 08/10/2015 08/10/2015 2.16.840.1.082465.4.391.11.60420 [facility] 4 week follow up [id number] 09/08/2015 09/08/2015 2.16.840.1.363981.4.391.11.24256 [facility] 4 week follow up [id number] 09/08/2015 09/08/2015 2.16.840.1.837885.4.391..49342 [facility] 4 week follow up [id number] 09/08/2015 09/08/2015 2.16.840.1.644458.4.391.11.01700 [facility] 4 week follow up [id number] 09/08/2015 09/08/2015 2.16.840.1.156260.4.391..41102 [facility] 4 week follow up [id number] 09/08/2015 09/08/2015 2.16.840.1.248682.4.391..13224 [facility] 4 week follow up [id number] 09/08/2015 09/08/2015 2.16.840.1.735407.4.391..10522 [facility] 1 month f/u [id number] 11/01/2015 11/01/2015 2.16.840.1.929859.4.391..01109 [facility] 1 month f/u [id number] 11/01/2015 11/01/2015 2.16.840.1.878141.4.391..90546 [facility] 1 month f/u [id number] 11/01/2015 11/01/2015 2.16.840.1.149957.4.391.11.12510 [facility] 1 month f/u [id number] 11/01/2015 11/01/2015 2.16.840.1.066125.4.391.11.34027 [facility] 1 month f/u [id number] 11/01/2015 11/01/2015 2.16.840.1.490227.4.391.11.91997 [facility] Unknown [id number] 02/25/2016 02/25/2016 2.16.840.1.059752.4.391.11.26225 [facility] Unknown [id number] 02/25/2016 02/25/2016 2.16.840.1.788000.4.391.11.31899 [facility] Unknown [id number] 02/25/2016 02/25/2016 2.16.840.1.526810.4.391.11.38501 [facility] Unknown [id number] 02/25/2016 02/25/2016 2.16.840.1.599577.4.391.11.38183 [facility] 4 week f/u [id number] 03/24/2016 03/24/2016 2.16.840.1.697287.4.391.11.24930 [facility] 4 week f/u [id number] 03/24/2016 03/24/2016 2.16.840.1.683280.4.391.11.68273 [facility] 4 week f/u [id number] 03/24/2016 03/24/2016 2.16.840.1.641845.4.391.11.40182 [facility] Unknown [id number] 07/04/2016 07/04/2016 2.16.840.1.766130.4.391.11.24443 [facility] Unknown [id number] 07/04/2016 07/04/2016 2.16.840.1.658328.4.391.11.47522 [facility] Unknown [id number] 08/04/2016 08/04/[address]16[address] [facility] Outpatient [id number] Trevor Zamudio 09/03/2017 09/04/2017 [facility] Procedures Procedure Code Date Perfomer Comments Source
--- OUTSIDE RECORDS SUMMARY | 2018-10-09 08:24 | XMS REPORT ---
Author Author Trevor Zamudio Organization [employer] Address Unknown Phone Unavailable Care Team Providers Care Online Media Buyer Name Role Phone Trevor Zamudio CP Unavailable [...] Active Problem Abnormal LFTs R79.89 Active Assessment Bronchitis J40 Active Problem Hypertensive heart disease I11.9 Active Problem Abnormal EKG R94.31 Active Medications Medication Code System Code Instructions Start Date End Date Status Dosage Flonase NDC 0 50 MCG/DOSE Nasally Once a day September 07, 2016 Active 1 spray in each nostril Levaquin [facility] [address]-29 500 MG Orally Once a day November 07, 2016 November 17, 2016 Active 1 tablet PredniSONE [facility] [address]-00 20 MG Orally Once a day Active 1 tablet Tessalon Perles [facility] [address]-84 100 MG Orally Three times a day November 07, 2016 November 21, 2016 Active 1 capsule as needed Lisinopril-Hydrochlorothiazide [facility] [address]-41 20-25 MG Orally twice a day August 30, 2016 Active 1 tablet Aspirin [facility] [address]-34 81 MG Active TAKE 1 TABLET BY MOUTH ONCE DAILY Metoprolol Succinate ER [facility] [address]-12 25 MG Orally twice a day (bid) Active 1 tablet ProAir HFA [facility] [address]-02 108 (90 Base) MCG/ACT Inhalation every 4 hrs Active 2 puffs as needed Zithromax [facility] [address]-20 250 MG Orally Once a day Active 2 tablets on the first day, then 1 tablet daily for 4 days Levothyroxine Sodium [facility] [address]-13 50 MCG Orally Once a day August 02, 2015 Active 1 tablet Vital Signs Date/Time: November 07, 2016 BMI 41.06 Index Weight 229.6 lbs Height 62.7 in Temperature 99.3 F Cardiac Monitoring Heart Rate 64 /min Blood Pressure Diastolic 81 mm Hg Blood Pressure Systolic 132 mm Hg Results No Known Results Summary Purpose eClinicalWorks Submission
--- OUTSIDE RECORDS SUMMARY | 2018-10-09 08:25 | XMS REPORT ---
Author Trevor Sotelo Organization [employer] Address Unknown Phone Unavailable Care Team Providers Care Undergraduate Internship Name Role Phone Trevor Zamudio CP Unavailable Allergies, Adverse Reactions, Alerts Substance Reaction Event Type lisinopril cough Non Drug Allergy Problems Problem Type Condition [...] polyneuropathy G62.89 Active Problem Prediabetes R73.03 Active Assessment Hypothyroidism E03.9 Active Assessment Essential (primary) hypertension I10 Active Assessment Other and unspecified hyperlipidemia E78.5 Active Problem Contact dermatitis L25.9 Active Problem Hypertensive heart disease I11.9 Active Assessment Moderate persistent asthma with exacerbation J45.41 Active Problem Abnormal EKG R94.31 Active Problem Essential (primary) hypertension I10 Active Problem Hypothyroidism E03.9 Active Medications Medication Code System Code Instructions Start Date End Date Status Dosage ProAir HFA [facility] 92078184410 108 (90 Base) MCG/ACT Inhalation every 4 hrs Active 2 puffs as needed Losartan Potassium-HCTZ ND 40747373394 50-12.5 MG Orally Once a day September 03, 2017 Active 1 tablet Furosemide ND 62400340725 20 MG Orally Once a day Active 1 tablet Nasacort AQ NDC 0 55 MCG/ACT Nasally Once a day September 03, 2017 Active 1 puff in each nostril Losartan Potassium ND 10642575351 100 MG Orally Once a day Active 1 tablet Claritin [facility] 32312049824 10 mg Orally Once a day September 03, 2017 November 02, 2017 Active 1 tablet Pravastatin Sodium [facility] 96013003698 40 MG Orally Once a day Active 1 tablet Micro-K [facility] 96615223586 10 MEQ Orally Twice a day Active 1 capsule with food Ceftin [facility] [address]-65 500 mg Orally Twice a day October 12, 2017 October 22, 2017 Active 1 tablet Tramadol HCl [facility] 31182948915 50 mg Orally every 6 hrs October 04, 2017 November 04, 2017 Active 1 tablet as needed Flonase [facility] [address]-60 50 MCG/DOSE Nasally Once a day September 07, 2016 Active 1 spray in each nostril Symbicort [facility] 11537413017 160-4.5 MCG/ACT Inhalation Twice a day October 19, 2017 December 19, 2017 Active 2 puffs Zantac [facility] 64787915781 150 MG Orally twice a day (bid) September 03, 2017 Active 1 tablet at bedtime Medrol (De) NDC 0 4 MG Orally Active not defined Aspirin [facility] 83973602997 81 MG by mouth every day (qd) Active TAKE 1 TABLET BY MOUTH ONCE DAILY Metoprolol Succinate ER [facility] 51594115527 25 MG Orally twice a day (bid) Mar 07, 2017 Active 1 tablet Levothyroxine Sodium [facility] 70879260891 50 MCG Orally Once a day August 02, 2015 Active 1 tablet Vital Signs Date/Time: October 19, 2017 BMI 42.88 Index Weight 239.8 lbs Height 62.7 in Temperature 9.2 F Cardiac Monitoring Heart Rate 70 /min Blood Pressure Diastolic 81 mm Hg Blood Pressure Systolic 138 mm Hg Results No Known Results Summary Purpose eClinicalWorks Submission
--- OUTSIDE RECORDS SUMMARY | 2018-10-09 08:25 | XMS REPORT ---
Author Author Trevor Zamudio Organization [employer] Address Unknown Phone Unavailable Care Team Providers Care Parts Department Supervisor Name Role Phone Trevor Zamudio CP Unavailable Encounters Encounter Location Date Unknown [facility] Jul 15, 2015 Unknown [facility] Jul 26, 2015 Problems Problem Type Condition ICD-9 Code Onset Dates Condition Status Problem Contact dermatitis L25.9 Active Problem Abnormal EKG R94.31 Active Problem Essential (primary) hypertension I10 Active Problem Hypertensive heart disease I11.9 Active Assessment Abnormal liver function K76.89 Active Social History Social History Element Qualifiers Date Reported Tobacco Use: . Are you a: former smoker, How much do you smoke? Greater than one pack per day, Pack Years 30, What year did you quit? 2006, Additional Findings: Tobacco Non-User Ex-very heavy cigarette smoker (40+/day) Jul 15, 2015 Use of recreational / street drugs? . Answer: No Jul 15, 2015 Marital Status: . Jul 15, 2015 Caffeine intake? . Status: Yes, What type: Coffee, 1 cup a day Jul 15, 2015 Do you exercise? . Answer: No Jul 15, 2015 Do you drink alcohol? . Status: No Jul 15, 2015 Travel outside [place]: . no Jul 15, 2015 Occupation: . Employed. APPARTMENT [employer] Jul 15, 2015 Summary Purpose eClinicalWorks Submission
--- OUTSIDE RECORDS SUMMARY | 2018-10-09 08:25 | XMS REPORT ---
Author Author Trevor Zamudio Organization [employer] Address Unknown Phone Unavailable Care Team Providers Care Meal Packer Name Role Phone Trevor Zamudio CP Unavailable Allergies No Known Allergies Problems Problem Type Condition Code Onset Dates Condition Status Problem Abnormal EKG R94.31 Active Problem Hypothyroidism E03.9 Active Problem Hepatitis C B19.20 Active Problem Other polyneuropathy G62.89 Active Problem Prediabetes R73.03 Active Problem BMI 40.0-44.9, adult Z68.41 Active Problem Abnormal LFTs R79.89 Active Problem Body mass index (BMI) of 40.1 to 44.9 in adult Z68.41 Active Problem Other and unspecified hyperlipidemia E78.5 Active Problem Morbid obesity, unspecified obesity type E66.01 Active Problem Essential (primary) hypertension I10 Active Problem Contact dermatitis L25.9 Active Problem Hypertensive heart disease I11.9 Active Medications Medication Code System Code Instructions Start Date End Date Status Dosage Metoprolol Succinate ER [facility] 25187467333 25 MG Orally twice a day (bid) Active 1 tablet Results No Known Results Summary Purpose [employer]ClinicalWorks Submission
--- OUTSIDE RECORDS SUMMARY | 2018-10-09 08:25 | XMS REPORT ---
Author Author Trevor Zamudio Organization [employer] Address Unknown Phone Unavailable Care Team Providers Care Gis Consultant Name Role Phone Trevor Zamudio CP Unavailable [...] Instructions Start Date End Date Status Dosage Losartan Potassium [facility] [address]-05 100 mg Orally Once a day Active 1 tablet Results No Known Results Summary Purpose eClinicalWorks Submission
--- OUTSIDE RECORDS SUMMARY | 2018-10-09 08:25 | XMS REPORT ---
Author Author Trevor Zamudio [facility] eClinicalWorks Address Unknown Phone Unavailable Care Team Providers Care Assembler Caterpillar Spider Name Role Phone Trevor Zamudio CP Unavailable Allergies No Known Allergies Problems Problem Type Condition Code Onset Dates Condition Status Problem Abnormal EKG R94.31 Active Problem Hypothyroidism E03.9 Active Problem Hepatitis C B19.20 Active Problem Other polyneuropathy G62.89 Active Problem Prediabetes R73.03 Active Problem Seasonal allergic rhinitis due to other allergic trigger J30.89 Active Problem Abnormal LFTs R79.89 Active Problem Body mass index (BMI) of 40.1 to 44.9 in adult Z68.41 Active Problem Other and unspecified hyperlipidemia E78.5 Active Problem Morbid obesity, unspecified obesity type E66.01 Active Problem Essential (primary) hypertension I10 Active Problem Contact dermatitis L25.9 Active Problem Hypertensive heart disease I11.9 Active Medications Medication Code System Code Instructions Start Date End Date Status Dosage Furosemide [facility] 33872412357 20 mg Orally Once a day Active 1 tablet Results No Known Results Summary Purpose eClinicalWorks Submission
--- OUTSIDE RECORDS SUMMARY | 2018-10-09 08:25 | XMS REPORT ---
Author Author Trevor Zamudio Organization [employer] Address Unknown Phone Unavailable Care Team Providers Care Chalk Machine Operator Name Role Phone Trevor Zamudio CP Unavailable Allergies, Adverse Reactions, Alerts Substance Reaction Event Type lisinopril cough Non Drug Allergy Problems Problem Type Condition Code Onset Dates Condition Status Problem Abnormal LFTs R79.89 Active Problem Morbid obesity, unspecified obesity type E66.01 Active Problem Other and unspecified hyperlipidemia E78.5 Active Problem Trigger middle finger of left hand M65.332 Active Assessment Hepatitis C B19.20 Active Problem Acute on chronic diastolic HF (heart failure) I50.33 Active Assessment Seasonal allergic rhinitis due to other allergic trigger J30.89 Active Assessment Trigger middle finger of left hand M65.332 Active Problem Chronic diastolic HF (heart failure) I50.32 Active Problem Other polyneuropathy G62.89 Active Problem Prediabetes R73.03 Active Problem FIDEL (obstructive sleep apnea) G47.33 Active Problem Seasonal allergic rhinitis due to other allergic trigger J30.89 Active Problem Essential (primary) hypertension I10 Active Assessment Chronic diastolic HF (heart failure) I50.32 Active Assessment Essential (primary) hypertension I10 Active Problem Abnormal EKG R94.31 Active Problem Hypothyroidism E03.9 Active Problem Contact dermatitis L25.9 Active Problem Hepatitis C B19.20 Active Problem Hypertensive heart disease I11.9 Active Problem Body mass index (BMI) of 40.1 to 44.9 in adult Z68.41 Active Medications Medication Code System Code Instructions Start Date End Date Status Dosage Naprosyn ND 68077870054 500 mg Orally once a day prn Active 1 tablet with food or milk as needed Symbicort ND 76969594460 160-4.5 MCG/ACT Inhalation as needed (prn) Active 2 puffs Pepcid ND 67054377022 20 mg Orally twice a day (bid) Active 1 tablet at bedtime Furosemide ND 01767869226 80 MG Orally Once a day Active 1 tablet Lasix ND 48514462520 80 mg Orally Once a day November 12, 2017 Active 1 tablet Pravastatin Sodium ND 87571755850 80 mg Orally Once a day Active 1 tablet Losartan Potassium-HCTZ ND 28762386586 50-12.5 MG Orally Once a day September 03, 2017 Active 1 tablet Levothyroxine Sodium ND 24805394550 50 MCG Orally Once a day Active 1 tablet Aspirin ND 82806395282 81 MG by mouth every day (qd) Active TAKE 1 TABLET BY MOUTH ONCE DAILY Nasacort AQ NDC 0 55 MCG/ACT Nasally Once a day September 03, 2017 Active 1 puff in each nostril Torsemide ND 64969899183 20 mg Orally twice a day (bid) Active 2 tablet Pantoprazole Sodium ND 09567185366 40 MG Orally Once a day Active 1 tablet Medrol (De) NDC 0 4 MG Orally Active not defined Klor-Con ND 10638474800 20 MEQ Orally Once a day Active 1 packet with food Losartan Potassium ND 02627123431 100 mg Orally Once a day Active 1 tablet Pravachol [facility] 12309242126 40 MG Active TAKE 1 TABLET AT BEDTIME Zantac ND 16900958275 150 MG Orally twice a day (bid) September 03, 2017 Active 1 tablet at bedtime Metoprolol Succinate ER ND 14450758848 25 MG Orally twice a day (bid) Active 1 tablet Flonase ND 45846076857 50 MCG/DOSE Nasally Once a day Active 1 spray in each nostril Cozaar [facility] 29486417864 100 MG Active TAKE 1 TABLET EVERY DAY ProAir HFA [facility] 64959461360 108 (90 Base) MCG/ACT Inhalation as needed (prn) Active 2 puffs as needed Vital Signs Date/Time: September 02, 2018 BMI 42.33 Index Weight 236.7 lbs Height 62.7 in Temperature 96.7 F Cardiac Monitoring Heart Rate 68 /min Blood Pressure Diastolic 60 mm Hg Blood Pressure Systolic 123 mm Hg Results No Known Results Summary Purpose eClinicalWorks Submission
--- OUTSIDE RECORDS SUMMARY | 2018-10-09 08:25 | XMS REPORT ---
Author Author Trevor Zamudio Organization [employer] Address Unknown Phone Unavailable Care Team Providers Care Handle Lathe Operator Name Role Phone Trevor Zamudio CP Unavailable Allergies, Adverse Reactions, Alerts Substance Reaction Event Type N.K.D.A. Info Not Available Non Drug Allergy Encounters Encounter Location Date 2 WEEK FOLLOW UP [facility] August 02, 2015 4 week follow up [facility] September 08, 2015 Unknown [facility] Jul 15, 2015 Unknown [facility] Jul 26, 2015 ECHO [facility] August 10, 2015 Problems Problem Type Condition ICD-9 Code Onset Dates Condition Status Assessment Hypothyroidism E03.9 Active Assessment Essential (primary) hypertension I10 Active Assessment Hepatitis C B19.20 Active Problem Hypothyroidism E03.9 Active Problem Hepatitis C B19.20 Active Problem Body mass index (BMI) of 40.1 to 44.9 in adult Z68.41 Active Problem Abnormal EKG R94.31 Active Problem Hypertensive heart disease I11.9 Active Problem Essential (primary) hypertension I10 Active Problem Contact dermatitis L25.9 Active Assessment Body mass index (BMI) of 40.1 to 44.9 in adult Z68.41 Active Assessment Contact dermatitis L25.9 Active Assessment Hypertensive heart disease I11.9 Active Medications Medication Code System Code Instructions Start Date End Date Status Dosage Levothyroxine Sodium [facility] [address]-71 50 MCG Orally Once a day August 02, 2015 Active [address]FA [facility] [address]-58 108 (90 Base) MCG/ACT Inhalation every 4 hrs Active 2 puffs as needed Lisinopril-Hydrochlorothiazide [facility] [address]-48 10-12.5 MG Orally Once a day August 02, 2015 Active 1 tablet Aspir-[address] [facility] [address]-42 81 MG Orally Once a day July 27, 2016 Active 1 tablet Osteo Bi-Flex Adv Double St [facility] [address] 1 tablet Orally daily Jul 15, 2015 Jan 13, 2016 Active as directed Metoprolol Tartrate [facility] [address]-38 25 MG Orally Twice a day Active 1 tablet Social History Social History Element Qualifiers Date Reported Tobacco Use: . Are you a: former smoker, How much do you smoke? Greater than one pack per day, Pack Years 30, What year did you quit? 2006, Additional Findings: Tobacco Non-User Ex-very heavy cigarette smoker (40+/day) September 08, 2015 Use of recreational / street drugs? . Answer: No September 08, 2015 Marital Status: . September 08, 2015 Caffeine intake? . Status: Yes, What type: Coffee, 1 cup a day September 08, 2015 Do you exercise? . Answer: No September 08, 2015 Do you drink alcohol? . Status: No September 08, 2015 Travel outside [place]: . no September 08, 2015 Occupation: . Employed. APPARTMENT [employer] September 08, 2015 Vital Signs Date/Time: September 08, 2015 Weight 229.8 lbs Height 62.7 in Temperature 97.8 F Cardiac Monitoring Heart Rate 69 /min Blood Pressure Diastolic 88 mm Hg Blood Pressure Systolic 149 mm Hg Summary Purpose eClinicalWorks Submission
--- OUTSIDE RECORDS SUMMARY | 2018-10-09 08:25 | XMS REPORT ---
Author Author Trevor Zamudio Organization [employer] Address Unknown Phone Unavailable Care Team Providers Care Breakfast Attendant Name Role Phone Trevor Zamudio CP Unavailable Allergies, Adverse Reactions, Alerts Substance Reaction Event Type N.K.D.A. Info Not Available Non Drug Allergy Encounters Encounter Location Date 2 WEEK FOLLOW UP [facility] August 02, 2015 Unknown [facility] Jul 15, 2015 Unknown [facility] Jul 26, 2015 ECHO [facility] August 10, 2015 Problems Problem Type Condition ICD-9 Code Onset Dates Condition Status Assessment Hypertensive heart disease I11.9 Active Assessment Contact dermatitis L25.9 Active Assessment Abnormal EKG R94.31 Active Assessment Hepatitis C B19.20 Active Assessment Hypothyroidism E03.9 Active Problem Hepatitis C B19.20 Active Problem Essential (primary) hypertension I10 Active Problem Hypothyroidism E03.9 Active Problem Hypertensive heart disease I11.9 Active Assessment Essential (primary) hypertension I10 Active Problem Contact dermatitis L25.9 Active Problem Abnormal EKG R94.31 Active Medications Medication Code System Code Instructions Start Date End Date Status Dosage Aspir-81 [facility] [address]-74 81 MG Orally Once a day July 27, 2016 Active 1 tablet Osteo Bi-Flex Adv Double St [facility] 99941-[address]551 1 tablet Orally daily Jul 15, 2015 Jan 13, 2016 Active as directed Metoprolol Tartrate [facility] [address]-21 25 MG Orally Twice a day Active 1 tablet Lisinopril-Hydrochlorothiazide [facility] [address]-85 10-12.5 MG Orally Once a day August 02, 2015 Active 1 tablet Levothyroxine Sodium [facility] [address]-08 50 MCG Orally Once a day August 02, 2015 Active 1 tablet ProAir HFA [facility] [address]-65 108 (90 Base) MCG/ACT Inhalation every 4 hrs Active 2 puffs as needed Lisinopril [facility] [address]-72 5 MG Orally Once a day Inactive 1 tablet Social History Social History Element Qualifiers Date Reported Tobacco Use: . Are you a: former smoker, How much do you smoke? Greater than one pack per day, Pack Years 30, What year did you quit? 2006, Additional Findings: Tobacco Non-User Ex-very heavy cigarette smoker (40+/day) August 02, 2015 Use of recreational / street drugs? . Answer: No August 02, 2015 Marital Status: . August 02, 2015 Caffeine intake? . Status: Yes, What type: Coffee, 1 cup a day August 02, 2015 Do you exercise? . Answer: No August 02, 2015 Do you drink alcohol? . Status: No August 02, 2015 Travel outside [place]: . no August 02, 2015 Occupation: . Employed. [employer]PARTMENT [employer] August 02, 2015 Vital Signs Date/Time: August 02, 2015 Weight 229 lbs Height 62.7 in Temperature 98.1 F Cardiac Monitoring Heart Rate 64 /min Blood Pressure Diastolic 90 mm Hg Blood Pressure Systolic 147 mm Hg Summary Purpose [employer]ClinicalWorks Submission
--- OUTSIDE RECORDS SUMMARY | 2018-10-09 08:25 | XMS REPORT ---
Author Author Trevor Zamudio Organization [employer] Address Unknown Phone Unavailable Care Team Providers Care Manager English Name Role Phone Trevor Zamudio CP Unavailable [...] Instructions Start Date End Date Status Dosage Pravastatin Sodium [facility] 83142501793 80 mg Orally Once a day Active 1 tablet Ergocalciferol [facility] 53575557849 14780 UNIT Orally ONCE A WEEK November 29, 2017 Jan 13, 2018 Active 1 capsule Results No Known Results Summary Purpose [employer]ClinicalWorks Submission
--- OUTSIDE RECORDS SUMMARY | 2018-10-09 08:25 | XMS REPORT ---
Author Author Trevor Zamudio [facility] eClinicalWorks Address Unknown Phone Unavailable Care Team Providers Care Assistant Cook Name Role Phone Trevor Zamudio CP Unavailable [...] Problem Hypertensive heart disease I11.9 Active Medications No Known Medications Results No Known Results Summary Purpose [employer]Works Submission
--- OUTSIDE RECORDS SUMMARY | 2018-10-09 08:25 | XMS REPORT ---
Author Author Trevor Zamudio Organization [employer] Address Unknown Phone Unavailable Care Team Providers Care Stock Counter Name Role Phone Trevor Zamudio CP Unavailable Allergies No Known Allergies Problems Problem Type Condition Code Onset Dates Condition Status Problem Abnormal LFTs R79.89 Active Problem Morbid obesity, unspecified obesity type E66.01 Active Problem Other and unspecified hyperlipidemia E78.5 Active Problem Trigger middle finger of left hand M65.332 Active Problem Acute on chronic diastolic HF (heart failure) I50.33 Active Problem Chronic diastolic HF (heart failure) I50.32 Active Problem Other polyneuropathy G62.89 Active Problem Prediabetes R73.03 Active Problem FIDEL (obstructive sleep apnea) G47.33 Active Problem Seasonal allergic rhinitis due to other allergic trigger J30.89 Active Problem Essential (primary) hypertension I10 Active Problem Abnormal EKG R94.31 Active Problem Hypothyroidism E03.9 Active Problem Contact dermatitis L25.9 Active Problem Hepatitis C B19.20 Active Problem Hypertensive heart disease I11.9 Active Problem Body mass index (BMI) of 40.1 to 44.9 in adult Z68.41 Active Medications Medication Code System Code Instructions Start Date End Date Status Dosage Cardizem [facility] 47912175970 120 MG Orally once a day September 09, 2018 Active 1 tablet before meals Results No Known Results Summary Purpose eClinicalWorks Submission
--- OUTSIDE RECORDS SUMMARY | 2018-10-09 08:25 | XMS REPORT ---
Author Author Trevor Zamudio Organization [employer] Address Unknown Phone Unavailable Care Team Providers Care Financial Analysis Advisor Name Role Phone Trevor Zamudio Unavailable Encounters Encounter Location Date Unknown [facility] Jul 15, 2015 Unknown [facility] Jul 26, 2015 ECHO [facility] August 10, 2015 Problems Problem Type Condition ICD-9 Code Onset Dates Condition Status Problem Hepatitis C B19.20 Active Problem Essential (primary) hypertension I10 Active Problem Hypothyroidism E03.9 Active Problem Hypertensive heart disease I11.9 Active Assessment Cardiomyopathy I42.9 Active Problem Contact dermatitis L25.9 Active Problem Abnormal EKG R94.31 Active Social History Social History Element Qualifiers [...] August 02, 2015 Occupation: . Employed. APPARTMENT [employer] WORK[employer] August 02, 2015 Summary Purpose [employer]ClinicalWorks Submission
--- OUTSIDE RECORDS SUMMARY | 2018-10-09 08:25 | XMS REPORT ---
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 Active Problem Essential (primary) hypertension I10 Active Assessment Hypothyroidism E03.9 Active Problem Contact dermatitis L25.9 Active Assessment Essential (primary) hypertension I10 Active Problem Hypertensive heart disease I11.9 Active Medications Medication Code System Code Instructions Start Date End Date Status Dosage Levothyroxine Sodium [facility] 24739770884 50 MCG Orally Once a day August 02, 2015 Active 1 tablet Medrol (De) NDC 0 4 mg Orally as directed September 20, 2017 September 26, 2017 Active 1 tablet Naprosyn ND 65137814927 500 mg Orally every 12 hrs September 03, 2017 October 03, 2017 Active 1 tablet with food or milk as needed Zantac ND 80951677026 150 MG Orally twice a day (bid) September 03, 2017 Active 1 tablet at bedtime Aspirin ND 85851289724 81 MG by mouth every day (qd) Active TAKE 1 TABLET BY MOUTH ONCE DAILY Flexeril NDC 0 10 mg Orally twice a day (bid) September 20, 2017 October 05, 2017 Active 1 tablet as needed PredniSONE ND 76111947474 20 MG Orally Once a day Active 1 tablet Nasacort AQ ND 0 55 MCG/ACT Nasally Once a day September 03, 2017 Active 1 puff in each nostril Claritin [facility] 01635756172 10 mg Orally Once a day September 03, 2017 November 02, 2017 Active 1 tablet Metoprolol Succinate ER [facility] 69522131964 25 MG Orally twice a day (bid) Mar 07, 2017 Active 1 tablet Zithromax [facility] 46451957750 250 MG Orally Once a day Active 2 tablets on the first day, then 1 tablet daily for 4 days Flonase [facility] [address]-91 50 MCG/DOSE Nasally Once a day September 07, 2016 Active 1 spray in each nostril ProAir HFA [facility] 03910764846 108 (90 Base) MCG/ACT Inhalation every 4 hrs Active 2 puffs as needed Losartan Potassium-HCTZ [facility] 35202429016 50-12.5 MG Orally Once a day September 03, 2017 Active 1 tablet Vital Signs Date/Time: September 20, 2017 BMI 42.61 Index Weight 238.3 lbs Height 62.7 in Temperature 98.4 F Cardiac Monitoring Heart Rate 76 /min Blood Pressure Diastolic 81 mm Hg Blood Pressure Systolic 125 mm Hg Results No Known Results Summary Purpose eClinicalWorks Submission
--- OUTSIDE RECORDS SUMMARY | 2018-10-09 08:25 | XMS REPORT ---
Author Trevor Sotelo Organization [employer] Address Unknown Phone Unavailable Care Team Providers Care Fatback Trimmer Name Role Phone Trevor Zamudio CP Unavailable [...] G62.89 Active Problem Prediabetes R73.03 Active Assessment Other and unspecified hyperlipidemia E78.5 Active Assessment Hypothyroidism E03.9 Active Assessment Acute on chronic diastolic HF (heart failure) I50.33 Active Assessment FIDEL (obstructive sleep apnea) G47.33 Active Problem Contact dermatitis L25.9 Active Problem Hypertensive heart disease I11.9 Active Assessment Essential (primary) hypertension I10 Active Problem Abnormal EKG R94.31 Active Problem Essential (primary) hypertension I10 Active Problem Hypothyroidism E03.9 Active Medications Medication Code System Code Instructions Start Date End Date Status Dosage Lasix [facility] 26631422687 80 mg Orally Once a day November 12, 2017 Active 1 tablet Metoprolol Succinate ER [facility] 15279466488 25 MG Orally twice a day (bid) Mar 07, 2017 Active 1 tablet Losartan Potassium [facility] 28076522365 100 MG Orally Once a day Active 1 tablet Losartan Potassium-HCTZ [facility] 72323580561 50-12.5 MG Orally Once a day September 03, 2017 Active 1 tablet Klor-Con [facility] 82144651589 20 MEQ Orally Once a day Active 1 packet with food Klor-Con M20 [facility] 29048809156 20 MEQ Orally twice a day (bid) November 12, 2017 Mar 12, 2018 Active 1 tablet with food Medrol (De) NDC 0 4 MG Orally Active not defined Aspirin ND 31754203331 81 MG by mouth every day (qd) Active TAKE 1 TABLET BY MOUTH ONCE DAILY Pantoprazole Sodium [facility] 55846107821 40 MG Orally Once a day Active [address] [facility] 20047120204 150 MG Orally twice a day (bid) September 03, 2017 Active 1 tablet at bedtime Furosemide ND 79258218296 80 MG Orally Once a day Active [address] [facility] 18338050392 160-4.5 MCG/ACT Inhalation Twice a day October 19, 2017 December 19, 2017 Active [address] [facility] [address]-00 50 MCG/DOSE Nasally Once a day September 07, 2016 Active 1 spray in each nostril ProAir HFA [facility] 72171856328 108 (90 Base) MCG/ACT Inhalation every 4 hrs Active 2 puffs as needed Ergocalciferol [facility] 09573766251 25311 UNIT Orally ONCE A WEEK November 29, 2017 Jan 13, 2018 Active [address] [facility] [address]-96 20 mg Orally twice a day (bid) Active 2 tablet Nasacort AQ NDC 0 55 MCG/ACT Nasally Once a day September 03, 2017 Active 1 puff in each nostril Levothyroxine Sodium [facility] 93945100752 50 MCG Orally Once a day August 02, 2015 Active 1 tablet Pravastatin Sodium [facility] 65837308279 80 mg Orally Once a day Active 1 tablet Vital Signs Date/Time: December 06, 2017 BMI 43.60 Index Weight 243.8 lbs Height 62.7 in Cardiac Monitoring Heart Rate 71 /min Blood Pressure Diastolic 70 mm Hg Blood Pressure Systolic 116 mm Hg Results No Known Results Summary Purpose eClinicalWorks Submission
--- OUTSIDE RECORDS SUMMARY | 2018-10-09 08:25 | XMS REPORT ---
Author Author Trevor Zamudio Organization [employer] Address Unknown Phone Unavailable Care Team Providers Care Principal Database Developer Name Role Phone Trevor Zamudio CP Unavailable [...] obesity, unspecified obesity type E66.01 Active Assessment Hepatitis C B19.20 Active Assessment Hypothyroidism E03.9 Active Assessment Sciatica associated with disorder of lumbar spine M53.86 Active Problem Essential (primary) hypertension I10 Active Assessment Hypertensive heart disease I11.9 Active Problem Contact dermatitis L25.9 Active Assessment Essential (primary) hypertension I10 Active Problem Hypertensive heart disease I11.9 Active Medications Medication Code System Code Instructions Start Date End Date Status Dosage Metoprolol Succinate ER [facility] 79393397467 25 MG Orally twice a day (bid) Mar 07, 2017 Active 1 tablet Aspirin [facility] 55006017793 81 MG by mouth every day (qd) Active TAKE 1 TABLET BY MOUTH ONCE DAILY Zantac [facility] 81060758582 150 MG Orally twice a day (bid) September 03, 2017 Active 1 tablet at bedtime Nasacort AQ NDC 0 55 MCG/ACT Nasally Once a day September 03, 2017 Active 1 puff in each nostril ProAir HFA [facility] 28165247486 108 (90 Base) MCG/ACT Inhalation every 4 hrs Active 2 puffs as needed Flonase [facility] [address]-74 50 MCG/DOSE Nasally Once a day September 07, 2016 Active 1 spray in each nostril Levothyroxine Sodium [facility] 91699887434 50 MCG Orally Once a day August 02, 2015 Active 1 tablet Flexeril NDC 0 10 mg Orally twice a day (bid) September 20, 2017 October 05, 2017 Active 1 tablet as needed Claritin [facility] 67426967828 10 mg Orally Once a day September 03, 2017 November 02, 2017 Active 1 tablet Tramadol HCl [facility] 53164611724 50 mg Orally every 6 hrs October 04, 2017 November 04, 2017 Active 1 tablet as needed Losartan Potassium-HCTZ [facility] 22396102130 50-12.5 MG Orally Once a day September 03, 2017 Active 1 tablet Vital Signs Date/Time: October 04, 2017 BMI 43.08 Index Weight 240.9 lbs Height 62.7 in Temperature 98.9 F Cardiac Monitoring Heart Rate 72 /min Blood Pressure Diastolic 71 mm Hg Blood Pressure Systolic 137 mm Hg Results No Known Results Summary Purpose eClinicalWorks Submission
--- OUTSIDE RECORDS SUMMARY | 2018-10-09 08:25 | XMS REPORT ---
Author Trevor Sotelo [facility] eClinicalWorks Address Unknown Phone Unavailable Care Team Providers Care Courtroom Clerk Name Role Phone Trevor Zamudio CP Unavailable [...] Assessment Essential (primary) hypertension I10 Active Assessment Morbid obesity, unspecified obesity type E66.01 Active Assessment Other and unspecified hyperlipidemia E78.5 Active Problem Contact dermatitis L25.9 Active Problem Hypertensive heart disease I11.9 Active Assessment Acute on chronic diastolic HF (heart failure) I50.33 Active Problem Abnormal EKG R94.31 Active Problem Essential (primary) hypertension I10 Active Problem Hypothyroidism E03.9 Active Medications Medication Code System Code Instructions Start Date End Date Status Dosage Pravastatin Sodium [facility] 00313668208 40 MG Orally Once a day Active 1 tablet Losartan Potassium ND 45669359413 100 MG Orally Once a day Active 1 tablet Zantac [facility] 95851700806 150 MG Orally twice a day (bid) September 03, 2017 Active 1 tablet at bedtime Symbicort [facility] 15844289803 160-4.5 MCG/ACT Inhalation Twice a day October 19, 2017 December 19, 2017 Active 2 puffs Flonase [facility] [address]-19 50 MCG/DOSE Nasally Once a day September 07, 2016 Active 1 spray in each nostril Lasix NDC 23347923879 80 mg Orally Once a day November 12, 2017 Active 1 tablet Aspirin NDC 51655132268 81 MG by mouth every day (qd) Active TAKE 1 TABLET BY MOUTH ONCE DAILY Metoprolol Succinate ER NDC 65330421549 25 MG Orally twice a day (bid) Mar 07, 2017 Active 1 tablet Furosemide NDC 70243126451 80 MG Orally Once a day Active 1 tablet Klor-Con ND 83602979997 20 MEQ Orally Once a day Active 1 packet with food Levothyroxine Sodium NDC 73869748830 50 MCG Orally Once a day August 02, 2015 Active 1 tablet Nasacort AQ NDC 0 55 MCG/ACT Nasally Once a day September 03, 2017 Active 1 puff in each nostril Losartan Potassium-HCTZ ND 84653144663 50-12.5 MG Orally Once a day September 03, 2017 Active 1 tablet ProAir HFA ND 52693548107 108 (90 Base) MCG/ACT Inhalation every 4 hrs Active 2 puffs as needed Micro-K ND 39013616226 10 MEQ Orally Twice a day Active 1 capsule with food Klor-Con M20 NDC 75251778173 20 MEQ Orally twice a day (bid) November 12, 2017 Mar 12, 2018 Active 1 tablet with food Medrol (De) NDC 0 4 MG Orally Active not defined Vital Signs Date/Time: November 12, 2017 BMI 44.38 Index Weight 248.2 lbs Height 62.7 in Temperature 98.3 F Cardiac Monitoring Heart Rate 69 /min Blood Pressure Diastolic 93 mm Hg Blood Pressure Systolic 167 mm Hg Results No Known Results Summary Purpose eClinicalWorks Submission
--- OUTSIDE RECORDS SUMMARY | 2018-10-09 08:25 | XMS REPORT ---
Author Author Trevor Zamudio [facility] eClinicalWorks Address Unknown Phone Unavailable Care Team Providers Care Engineer Exhauster Name Role Phone Trevor Zamudio CP Unavailable [...] Instructions Start Date End Date Status Dosage Ceftin [facility] [address]-01 500 mg Orally Twice a day October 12, 2017 October 22, 2017 Active 1 tablet Results No Known Results Summary Purpose eClinicalWorks Submission
--- OUTSIDE RECORDS SUMMARY | 2018-10-09 08:25 | XMS REPORT ---
Author Author Trevor Zamudio Organization [employer] Address Unknown Phone Unavailable Care Team Providers Care Machine Scallop Cutter Name Role Phone Trevor Zamudio CP Unavailable Allergies, Adverse Reactions, Alerts Substance Reaction Event Type lisinopril cough Non Drug Allergy Problems Problem Type Condition Code Onset Dates Condition Status Problem Hepatitis C B19.20 Active Problem Abnormal LFTs R79.89 Active Problem Body mass index (BMI) of 40.1 to 44.9 in adult Z68.41 Active Problem Acute on chronic diastolic HF (heart failure) I50.33 Active Assessment Morbid obesity, unspecified obesity type E66.01 Active Problem Seasonal allergic rhinitis due to other allergic trigger J30.89 Active Problem FIDEL (obstructive sleep apnea) G47.33 Active Problem Morbid obesity, unspecified obesity type E66.01 Active Problem Other and unspecified hyperlipidemia E78.5 Active Problem Other polyneuropathy G62.89 Active Problem Prediabetes R73.03 Active Assessment Pain in left shoulder M25.512 Active Assessment Pain in right shoulder M25.511 Active Assessment Other and unspecified hyperlipidemia E78.5 Active Assessment Essential (primary) hypertension I10 Active Problem Contact dermatitis L25.9 Active Problem Hypertensive heart disease I11.9 Active Problem Abnormal EKG R94.31 Active Problem Essential (primary) hypertension I10 Active Problem Hypothyroidism E03.9 Active Medications Medication Code System Code Instructions Start Date End Date Status Dosage Pantoprazole Sodium [facility] 48551569021 40 MG Orally Once a day Active 1 tablet Torsemide [facility] [address]-44 20 mg Orally twice a day (bid) Active 2 tablet Pepcid ND 56764362849 20 mg Orally twice a day (bid) May 06, 2018 Active 1 tablet at bedtime Lasix [facility] 26080772550 80 mg Orally Once a day November 12, 2017 Active 1 tablet Levothyroxine Sodium [facility] 00776746102 50 MCG Orally Once a day Active 1 tablet Naprosyn [facility] 77807655237 500 mg Orally every 12 hrs May 06, 2018 Jun 06, 2018 Active 1 tablet with food or milk as needed Furosemide ND 64677549775 80 MG Orally Once a day Active 1 tablet Pravachol ND 37019163087 40 MG Active TAKE 1 TABLET AT BEDTIME Pravastatin Sodium ND 07946363147 80 mg Orally Once a day Active 1 tablet Symbicort ND 06440661509 160-4.5 MCG/ACT Inhalation Twice a day Active 2 puffs Losartan Potassium ND 07177057810 100 MG Orally Once a day Active 1 tablet ProAir HFA [facility] [address]-56 108 (90 Base) MCG/ACT Inhalation as needed (prn) Active 2 puffs as needed Medrol (De) NDC 0 4 MG Orally Active not defined Klor-Con ND 96697102625 20 MEQ Orally Once a day Active 1 packet with food Metoprolol Succinate ER ND 15604820243 25 MG Orally twice a day (bid) Active 1 tablet Aspirin ND 92555839866 81 MG by mouth every day (qd) Active TAKE 1 TABLET BY MOUTH ONCE DAILY Losartan Potassium-HCTZ ND 14933934611 50-12.5 MG Orally Once a day September 03, 2017 Active 1 tablet Flonase [facility] [address]-12 50 MCG/DOSE Nasally as needed (prn) September 07, 2016 Active 1 spray in each nostril Nasacort AQ NDC 0 55 MCG/ACT Nasally Once a day September 03, 2017 Active 1 puff in each nostril Cozaar ND 81467746929 100 MG Active TAKE 1 TABLET EVERY DAY Zantac ND 53947686474 150 MG Orally twice a day (bid) September 03, 2017 Active 1 tablet at bedtime Vital Signs Date/Time: May 06, 2018 BMI 44.33 Index Weight 247.9 lbs Height 62.7 in Temperature 96.6 F Cardiac Monitoring Heart Rate 74 /min Blood Pressure Diastolic 70 mm Hg Blood Pressure Systolic 136 mm Hg Results No Known Results Summary Purpose eClinicalWorks Submission
--- OUTSIDE RECORDS SUMMARY | 2018-10-09 08:25 | XMS REPORT ---
Author Author Trevor Zamudio Organization [employer] Address Unknown Phone Unavailable Care Team Providers Care Manager Customer Name Role Phone Trevor Zamudio CP Unavailable Allergies, Adverse Reactions, Alerts Substance Reaction Event Type lisinopril cough Non Drug Allergy Problems Problem Type Condition Code Onset Dates Condition Status Assessment Seasonal allergic rhinitis due to other allergic trigger J30.89 Active Assessment Other polyneuropathy G62.89 Active Problem Contact dermatitis L25.9 Active Assessment Prediabetes R73.03 Active Problem Hypertensive heart disease I11.9 Active Assessment Morbid obesity, unspecified obesity type E66.01 Active Problem Abnormal EKG R94.31 Active Problem Hypothyroidism E03.9 Active Problem Hepatitis C B19.20 Active Problem Other polyneuropathy G62.89 Active Problem Prediabetes R73.03 Active Assessment Body mass index (BMI) of 40.1 to 44.9 in adult Z68.41 Active Assessment Abnormal LFTs R79.89 Active Problem Seasonal allergic rhinitis due to other allergic trigger J30.89 Active Assessment Other and unspecified hyperlipidemia E78.5 Active Problem Abnormal LFTs R79.89 Active Problem Body mass index (BMI) of 40.1 to 44.9 in adult Z68.41 Active Problem Other and unspecified hyperlipidemia E78.5 Active Problem Morbid obesity, unspecified obesity type E66.01 Active Assessment Hypertensive heart disease I11.9 Active Assessment Abnormal EKG R94.31 Active Assessment Hepatitis C B19.20 Active Assessment Hypothyroidism E03.9 Active Assessment Encounter for general adult medical examination with abnormal findings Z00.01 Active Problem Essential (primary) hypertension I10 Active Assessment Contact dermatitis L25.9 Active Assessment Essential (primary) hypertension I10 Active Medications Medication Code System Code Instructions Start Date End Date Status Dosage Lisinopril-Hydrochlorothiazide [facility] 63788833142 20-25 MG Orally twice a day Jan 30, 2017 September 03, 2017 Inactive 1 tablet PredniSONE [facility] 40048613397 20 MG Orally Once a day Active 1 tablet ProAir HFA [facility] 57710820222 108 (90 Base) MCG/ACT Inhalation every 4 hrs Active 2 puffs as needed Zithromax [facility] 89668426224 250 MG Orally Once a day Active 2 tablets on the first day, then 1 tablet daily for 4 days Losartan Potassium-HCTZ [facility] 16892011818 50-12.5 MG Orally Once a day September 03, 2017 Active 1 tablet Aspirin [facility] 63319412269 81 MG by mouth every day (qd) Active TAKE 1 TABLET BY MOUTH ONCE DAILY Metoprolol Succinate ER [facility] 86084164877 25 MG Orally twice a day (bid) Mar 07, 2017 Active 1 tablet Nasacort AQ ND 0 55 MCG/ACT Nasally Once a day September 03, 2017 Active 1 puff in each nostril Naprosyn [facility] 93079354296 500 mg Orally every 12 hrs September 03, 2017 October 03, 2017 Active 1 tablet with food or milk as needed Flonase [facility] [address]-87 50 MCG/DOSE Nasally Once a day September 07, 2016 Active 1 spray in each nostril Levothyroxine Sodium [facility] 98124233348 50 MCG Orally Once a day August 02, 2015 Active 1 tablet Claritin [facility] 41700157070 10 mg Orally Once a day September 03, 2017 November 02, 2017 Active 1 tablet Zantac [facility] 60046886991 150 MG Orally twice a day (bid) September 03, 2017 Active 1 tablet at bedtime Vital Signs Date/Time: September 03, 2017 BMI 42.58 Index Weight 238.1 lbs Height 62.7 in Temperature 98.9 F Cardiac Monitoring Heart Rate 69 /min Blood Pressure Diastolic 62 mm Hg Blood Pressure Systolic 115 mm Hg Results No Known Results Summary Purpose [employer] Submission
--- OUTSIDE RECORDS SUMMARY | 2018-10-09 08:25 | XMS REPORT ---
Author Author Trevor Zamudio Organization [employer] Address Unknown Phone Unavailable Care Team Providers Care Care Connector Name Role Phone Trevor Zamudio CP Unavailable Allergies, Adverse Reactions, Alerts Substance Reaction Event Type N.K.D.A. Info Not Available Non Drug Allergy Encounters Encounter Location Date Unknown [facility] Jul 15, 2015 Problems Problem Type Condition ICD-9 Code Onset Dates Condition Status Assessment BMI 40.0-44.9, adult Z68.41 Active Assessment Abnormal EKG R94.31 Active Assessment Obesity E66.9 Active Problem Contact dermatitis L25.9 Active Problem Abnormal EKG R94.31 Active Problem Essential (primary) hypertension I10 Active Assessment Essential (primary) hypertension I10 Active Assessment Contact dermatitis L25.9 Active Problem Hypertensive heart disease I11.9 Active Assessment Encounter for general adult medical examination with abnormal findings Z00.01 Active Assessment Knee pain M25.569 Active Assessment Hypertensive heart disease I11.9 Active Assessment Encounter for immunization Z23 Active Medications Medication Code System Code Instructions Start Date End Date Status Dosage Metoprolol Succinate Unknown 0 50 MG Orally Active Unknown Diprolene [facility] [address]-29 0.05 % Externally Once a day Jul 15, 2015 July 29, 2015 Active 1 application to affected area Lisinopril-Hydrochlorothiazide [facility] [address]-80 20-12.5 MG Orally Once a day Jul 15, 2015 Active 1 tablet ProAir HFA [facility] [address]-49 108 (90 Base) MCG/ACT Inhalation every 4 hrs Active 2 puffs as needed Osteo Bi-Flex Adv Double St [facility] [address] 1 tablet Orally daily Jul 15, 2015 Jan 13, 2016 Active as directed Toprol XL [facility] [address]-04 100 mg Orally Once a day Jul 15, 2015 Active 1 tablet Social History Social History [...] Jul 15, 2015 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
--- OUTSIDE RECORDS SUMMARY | 2018-10-09 08:26 | XMS REPORT ---
Author Author Trevor Zamudio [facility] [employer] Address Unknown Phone Unavailable Care Team Providers Care Commercial Roofing Estimator Name Role Phone Trevor Zamudio Unavailable Encounters Encounter Location Date 2 WEEK FOLLOW UP [facility] August 02, 2015 4 week follow up [facility] September 08, 2015 1 month f/u [facility] November 01, 2015 Unknown [facility] Feb 25, 2016 Unknown [facility] Jul 15, 2015 Unknown [facility] Jul 26, 2015 ECHO [facility] August 10, 2015 Unknown [facility] August 04, 2016 4 week f/u [facility] Mar 24, 2016 Unknown [facility] Jul 04, 2016 Problems Problem Type Condition ICD-9 Code Onset Dates Condition Status Problem Abnormal EKG R94.31 Active Problem Essential (primary) hypertension I10 Active Problem Contact dermatitis L25.9 Active Assessment Essential (primary) hypertension I10 Active Problem Hypertensive heart disease I11.9 Active Problem Morbid obesity, unspecified obesity type E66.01 Active Problem Prediabetes R73.03 Active Problem Other and unspecified hyperlipidemia E78.5 Active Problem Hypothyroidism E03.9 Active Problem Hepatitis C B19.20 Active Problem Abnormal LFTs R79.89 Active Problem Body mass index (BMI) of 40.1 to 44.9 in adult Z68.41 Active Medications Medication Code System Code Instructions Start Date End Date Status Dosage Levothyroxine S[facility] [address]-12 50 MCG Orally Once a day August 02, 2015 Active 1 tablet Aspir-81 [facility] [address]-47 81 MG Orally Once a day July 27, 2016 Active 1 tablet Social History Social History Element Qualifiers Date Reported Do you take Aspirin, or a blood thinner . Yes I do take aspirin/ or a blood thinner Jul 04, 2016 Tobacco Use: . Are you a: former smoker, How much do you smoke? Greater than one pack per day, Pack Years 30, What year did you quit? 2005, Additional Findings: Tobacco Non-User Ex-very heavy cigarette smoker (40+/day) Jul 04, 2016 Use of recreational / street drugs? . Answer: No Jul 04, 2016 Marital Status: . Jul 04, 2016 Caffeine intake? . Status: Yes, What type: Coffee, 1 cup a day Jul 04, 2016 Do you exercise? . Answer: No Jul 04, 2016 Do you drink alcohol? . Status: No Jul 04, 2016 Travel outside [place]: . 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
--- OUTSIDE RECORDS SUMMARY | 2018-10-09 08:26 | XMS REPORT ---
Author Author Trevor Zamudio Organization [employer] Address Unknown Phone Unavailable Care Team Providers Care Chemical Production Engineer Name Role Phone Trevor Zamudio CP Unavailable Allergies, Adverse Reactions, Alerts Substance Reaction Event Type N.K.D.A. Info Not Available Non Drug Allergy Encounters Encounter Location Date 2 WEEK FOLLOW UP [facility] August 02, 2015 4 week follow up [facility] September 08, 2015 1 month f/u [facility] November 01, 2015 Unknown [facility] Feb 25, 2016 Unknown [facility] Jul 15, 2015 Unknown [facility] Jul 26, 2015 ECHO [facility] August 10, 2015 4 week f/u [facility] Mar 24, 2016 Unknown [facility] Jul 04, 2016 Problems Problem Type Condition ICD-9 Code Onset Dates Condition Status Problem Abnormal EKG R94.31 Active Problem Essential (primary) hypertension I10 Active Problem Contact dermatitis L25.9 Active Problem Morbid obesity, unspecified obesity type E66.01 Active Assessment Closed displaced fracture of distal phalanx of right thumb with routine healing, subsequent encounter S62.521D Active Problem Prediabetes R73.03 Active Assessment Morbid obesity, unspecified obesity type E66.01 Active Assessment Prediabetes R73.03 Active Problem Other and unspecified hyperlipidemia E78.5 Active Problem Hypothyroidism E03.9 Active Problem Hepatitis C B19.20 Active Problem Abnormal LFTs R79.89 Active Problem Body mass index (BMI) of 40.1 to 44.9 in adult Z68.41 Active Assessment Body mass index (BMI) of 40.1 to 44.9 in adult Z68.41 Active Assessment Hepatitis C B19.20 Active Assessment Other and unspecified hyperlipidemia E78.5 Active Assessment Abnormal LFTs R79.89 Active Assessment Abnormal EKG R94.31 Active Assessment Contact dermatitis L25.9 Active Assessment Hypothyroidism E03.9 Active Assessment Essential (primary) hypertension I10 Active Assessment Hypertensive heart disease I11.9 Active Problem Hypertensive heart disease I11.9 Active Medications Medication Code System Code Instructions Start Date End Date Status Dosage Lisinopril-Hydrochlorothiazide [facility] [address]-76 20-25 MG Orally Once a day Feb 25, 2016 Active 1 tablet Levothyroxine Sodium [facility] [address]-50 50 MCG Orally Once a day August 02, 2015 Active 1 tablet Aspir-81 [facility] [address]-07 81 MG Orally Once a day July 27, 2016 Active 1 tablet Metoprolol Tartrate [facility] [address]-23 25 MG Orally Twice a day Active 1 tablet ProAir HFA [facility] [address]-76 108 (90 Base) MCG/ACT Inhalation every 4 hrs Active 2 puffs as needed Naprosyn [facility] [address]-16 500 MG Orally every 12 hrs Jul 04, 2016 Jul 19, 2016 Active 1 tablet as needed Pepcid [facility] [address]-13 20 MG Orally twice a day (bid) Jul 04, 2016 Active 1 tablet at bedtime Metoprolol Succinate Unknown 0 50 MG Orally Active Unknown Social History Social History Element Qualifiers Date [...] Jul 04, 2016 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
--- OUTSIDE RECORDS SUMMARY | 2018-10-09 08:26 | XMS REPORT ---
Author Author [facility] Address Unknown Phone Unavailable Care Team Providers Care Director Trial Name Role Phone Unavailable Unavailable Problems This patient has no known problems. Allergies, Adverse Reactions, Alerts Allergy Name Allergy Type Status Severity Reaction(s) Onset Date Inactive Date Treating Clinician Comments No Known Allergies DA Active U 2018-07-19 00:00:00 No Known Allergies DA Active U 2017-07-27 00:00:00 Medications This patient has no known medications. Results Test Description Test Time Test Comments Text Results Atomic Results Result Comments - USG NDL PLACEMENT (Bxg/Asp) 2018-07-19 14:30:00 Name: ARUNA ALVARADO [facility] : 1965 Age/S: 53 / F [address] Unit #: [id number] Loc: [place] [address] Phys: Mark Moore MD Acct: [id number] Dis Date: Status: REG REF PHONE #: [phone] Exam Date: 07/19/2018 1107 FAX #: Reason: BIOPSY EXAMS: CPT: [id number] USG NDL PLACEMENT (Bxg/Asp) 0[address]59 [facility] PROTOCOL. EXAMINATION: IMAGE GUIDED PERCUTANEOUS LIVER BIOPSY. LOCATION: S17. HISTORY: SERRATO, GERD, request is made for liver biopsy. COMPARISON: None. SEDATION: Moderate sedation was administered under the attending physician's direction and continuous monitoring by a trained nurse specialist who was independent from those actually performing the procedure. Total monitored intraservice sedation time was 15 minutes. TECHNIQUE: The risks, benefits and alternatives were discussed and informed consent was obtained. Prior to beginning the procedure, [place] Protocol was performed to confirm the patient's identity and the planned procedure. Maximum sterile barriers including cap, mask, hand hygiene, sterile gloves, sterile gown, large sterile drape and cutaneous antisepsis were used. The right lobe of the liver was localized using ultrasound guidance. A safe route, free of overlying structures was identified. The area over this site was a nesthetized with 1% lidocaine and a small skin incision was made. A 15 gauge coaxial biopsy device was advanced into the liver substance using real-time ultrasound guidance. This device was used to obtain a series of two 16G core specimens. These tissue cores were transferred to the appropriate containers for surgical pathology in formalin. At the end of the procedure, the biopsy set was removed and pressure held until hemostasis was achieved. ESTIMATED BLOOD LOSS: Minimal. CONDITION: Stable. DISCHARGE TO: Recovery then home. FINDINGS: Initial limited ultrasound images of right hepatic lobe demonstrated diffusely increased echogenicity of liver parenchyma. PAGE 1 Signed Report (CONTINUED) Name: ARUNA ALVARADO [place] : 1965 Age/S: 53 / F [id number] [place] [address] Unit #: [id number] Loc: [place] [address] Phys: Mark Moore MD Acct: [id number] Dis Date: Status: REG REF PHONE #: [phone] Exam Date: 07/19/2018 1109 FAX #: Reason: BIOPSY EXAMS: CPT: [id number] USG NDL PLACEMENT (Bxg/Asp) 85665 <Continued> Final ultrasound images demonstrate no significant perihepatic hematoma. IMPRESSION: Successful image guided percutaneous liver biopsy. at 1430 Reported and signed by: Trish Craig M.D. CC: Trevor Zamudio MD; Mark Moore MD Technologist: Elizabeth Pickard RDNH, RT(R) Trnscb Date/Time: 07/19/2018 (1430) [email or web address] PAGE 2 Signed Report Name: ARUNA ALVARADO [place] : 1965 Age/S: 53 / F [address] [facility] Unit #: [id number] Loc: [place] [address] Phys: Mark Moore MD Acct: [id number] Dis Date: Status: REG REF PHONE #: [phone] Exam Date: 07/19/2018 1107 FAX #: Reason: BIOPSY EXAMS: CPT: [id number] USG NDL PLACEMENT (Bxg/Asp) 87467 <Continued> Orig Print D/T: S: 07/19/2018 (1433) Probe: PAGE 3 Signed Report - US ABDOMEN LTD 2018-07-19 14:28:00 Name: ARUNA ALVARADO [facility] : 1965 Age/S: 53 / F [address] Unit #: [id number] Loc: [place] [address] Phys: Mark Moore MD Acct: [id number] Dis Date: Status: REG REF PHONE #: [phone] Exam Date: 07/19/2018 1005 FAX #: Reason: BIOPSY EXAMS: CPT: [id number] US ABDOMEN LTD 13762 EXAMINATION: - [address] [facility]BDOMEN [facility]. LOCATION: S17. HISTORY: SERRATO. COMPARISON: US abdomen 11/24/2017. TECHNIQUE: Multiple grayscale, pulse Doppler and color Doppler images of the right upper quadrant of the abdomen were obtained. FINDINGS: Examination is limited due to patient body habitus. The visualized liver parenchyma demonstrates diffusely increased echogenicity. The main, right and left portal vein is patent. Right, left and main hepatic veins are patent. Hepatic artery and splenic vein are patent. There is no intra or extrahepatic biliary ductal dilatation. The common duct measures 3 mm. The gallbladder demonstrates calculi and sludge without wall thickening. The visualized pancreatic head and body appears unremarkable, evaluation of the tail is limited by overlying bowel gas. The right kidney measures 10.5 cm. There is no hydronephrosis. The visualized portions of abdominal aorta and IVC appear unremarkable. IMPRESSION: Cholelithiasis and gallbladder sludge. Diffusely increased echogenicity of liver parenchyma, nonspecific, most commonly described in the setting of hepatic steatosis versus underlying parenchymal process. at 1428 Reported and signed by: Trish Craig M.D. PAGE 1 Signed Report (CONTINUED) Name: ARUNA ALVARADO : 1965 Age/S: 53 / F [address] Unit #: [id number] Loc: [place] [address] Phys: Mark Moore MD Acct: [id number] Dis Date: Status: REG REF PHONE #: [phone] Exam Date: 07/19/2018 1005 FAX #: Reason: BIOPSY EXAMS: CPT: [id number] US ABDOMEN LTD 07503 <Continued> CC: Trevor Zamudio MD; Mark Moore MD Technologist: Elizabeth Pickard RDMS, RT(R); Paulette Harris RDMS; .[facility] Date/Time: 07/19/2018 (7734) t.[email or web address] PAGE 2 Signed Report Name: ARUNA ALVARADO : 1965 Age/S: 53 / F [address] Unit #: [id number] Loc: [place] [address] Phys: Mark Moore MD Acct: [id number] Dis Date: Status: REG REF PHONE #: [phone] Exam Date: 07/19/2018 1005 FAX #: Reason: BIOPSY EXAMS: CPT: [id number] US ABDOMEN LTD [address]30 <Continued> Orig Print D/T: S: 07/19/2018 (8547) Probe: PAGE 3 Signed Report
--- OUTSIDE RECORDS SUMMARY | 2018-10-09 08:26 | XMS REPORT | Summary of Care ---
Author Author [facility] Organization [facility] Address Unknown Phone Unavailable Encounter HQ Encntr_alias(FIN) [id number] Date(s): 09/03/17 - 09/03/17 [facility] [address] [place] [address]- [phone] Encounter Diagnosis Pain in right hip (Final) - 09/10/17 Discharge Disposition: Home or Self Care Attending Physician: Trevor Zamudio MD Vital Signs No data available for this section Problem List No data available for this section Allergies, Adverse Reactions, Alerts No data available for this section Medications No data available for this section Results No data available for this section Immunizations No data available for this section Procedures No data available for this section Social History No data available for this section Assessment and Plan No data available for this section
--- OUTSIDE RECORDS SUMMARY | 2018-10-09 08:26 | XMS REPORT ---
Author Author Trevor Zamudio Organization [employer] Address Unknown Phone Unavailable Care Team Providers Care Molder Trimmer Name Role Phone Trevor Zamudio CP [...] Start Date End Date Status Dosage Lisinopril-Hydrochlorothiazide [facility] [address]-29 20-25 MG Orally Once a day Feb 25, 2016 Active 1 tablet Results No Known Results Summary Purpose eClinicalWorks Submission
--- OUTSIDE RECORDS SUMMARY | 2018-10-09 08:26 | XMS REPORT | Summary of Care ---
Author Author [facility] Organization [facility] Address Unknown Phone Unavailable Encounter HQ Encntr_alias(FIN) [id number] Date(s): 09/03/17 - 09/03/17 [facility] [address] [place] [address]- [phone] Encounter Diagnosis Pain in right hip (Final) [...]
--- OUTSIDE RECORDS SUMMARY | 2018-10-09 08:26 | XMS REPORT ---
Author Author Trevor Zamudio Organization [employer] Address Unknown Phone Unavailable Care Team Providers Care Instrumentation Manager Name Role Phone Trevor Zamudio Unavailable Allergies, Adverse Reactions, Alerts Substance Reaction Event Type N.K.D.A. Info Not Available Non Drug Allergy Encounters Encounter Location Date 2 WEEK FOLLOW UP [facility] August 02, 2015 4 week follow up [facility] September 08, 2015 1 month f/u [facility] November 01, 2015 Unknown [facility] Feb 25, 2016 Unknown [facility] Jul 15, 2015 Unknown [facility] Jul 26, 2015 ECHO [facility] August 10, 2015 4 week f/u [facility] Mar 24, 2016 Problems Problem Type Condition ICD-9 Code Onset Dates Condition Status Assessment Acute serous otitis media of right ear without rupture H65.01 Active Problem Abnormal EKG R94.31 Active Problem Hypertensive heart disease I11.9 Active Problem Abnormal LFTs R79.89 Active Assessment Abnormal LFTs R79.89 Active Problem Body mass index (BMI) of 40.1 to 44.9 in adult Z68.41 Active Problem Pure hypercholesterolemia E78.0 Active Problem Essential (primary) hypertension I10 Active Problem Contact dermatitis L25.9 Active Problem Hypothyroidism E03.9 Active Problem Hepatitis C B19.20 Active Assessment Hepatitis C B19.20 Active Assessment Hypothyroidism E03.9 Active Assessment Pure hypercholesterolemia E78.0 Active Assessment Body mass index (BMI) of 40.1 to 44.9 in adult Z68.41 Active Assessment Contact dermatitis L25.9 Active Assessment Essential (primary) hypertension I10 Active Assessment Hypertensive heart disease I11.9 Active Assessment Impacted cerumen of right ear H61.21 Active Assessment Abnormal EKG R94.31 Active Assessment Acute bronchitis, antibiotics not indicated J20.9 Active Medications Medication Code System Code Instructions Start Date End Date Status Dosage ProAir HFA [facility] [address]-32 108 (90 Base) MCG/ACT Inhalation every 4 hrs Active 2 puffs as needed Lisinopril-Hydrochlorothiazide [facility] [address]-52 20-25 MG Orally Once a day Feb 25, 2016 Active 1 tablet Metoprolol Tartrate [facility] [address]-23 25 MG Orally Twice a day Active 1 tablet Aspir-81 [facility] [address]-81 81 MG Orally Once a day July 27, 2016 Active 1 tablet Qvar [facility] [address]-62 80 MCG/ACT Inhalation Twice a day Mar 24, 2016 Apr 03, 2016 Active 1 puff Lisinopril-Hydrochlorothiazide [facility] 70145222265 10-12.5 MG Orally Once a day Active 1 tablet Levothyroxine Sodium [facility] [address]-24 50 MCG Orally Once a day August 02, 2015 Active 1 tablet Social History Social History Element Qualifiers Date Reported Do you take Aspirin, or a blood thinner . Yes I do take aspirin/ or a blood thinner Mar 24, 2016 Tobacco Use: . Are you a: former smoker, How much do you smoke? Greater than one pack per day, Pack Years 30, What year did you quit? 2006, Additional Findings: Tobacco Non-User Ex-very heavy cigarette smoker (40+/day) Mar 24, 2016 Use of recreational / street drugs? . Answer: No Mar 24, 2016 Marital Status: . Mar 24, 2016 Caffeine intake? . Status: Yes, What type: Coffee, 1 cup a day Mar 24, 2016 Do you exercise? . Answer: No Mar 24, 2016 Do you drink alcohol? . Status: No Mar 24, 2016 Travel outside [place]: . 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, 2016 Family history Qualifier Description Comment Date Reported Maternal Grandmother Comment not available Mar 24, 2016 Paternal Grandmother Comment not available Mar 24, 2016 Siblings Comment not available Mar 24, 2016 Maternal Grandfather Comment not available Mar 24, 2016 Children Comment not available Mar 24, 2016 Father alive Comment not available Mar 24, 2016 Paternal Grandfather Comment not available Mar 24, 2016 Mother alive Comment not available Mar 24, 2016 Other: Comment not available Mar 24, 2016 Vital Signs Date/Time: Mar 24, 2016 Weight 230.0 lbs Height 62.7 in Temperature 98.2 F Cardiac Monitoring Heart Rate 81 /min Blood Pressure Diastolic 73 mm Hg Blood Pressure Systolic 129 mm Hg Summary Purpose [employer] Submission
--- OUTSIDE RECORDS SUMMARY | 2018-10-09 08:26 | XMS REPORT ---
Author Author Trevor Zamudio Organization [employer] Address Unknown Phone Unavailable Care Team Providers Care Stab Setter And Driller Name Role Phone Trevor Zamudio CP Unavailable Allergies, Adverse Reactions, Alerts Substance Reaction Event Type N.K.D.A. Info Not Available Non Drug Allergy Encounters Encounter Location Date 2 WEEK FOLLOW UP [facility] August 02, 2015 4 week follow up [facility] September 08, 2015 1 month f/u [facility] November 01, 2015 Unknown [facility] Jul 15, 2015 Unknown [facility] Jul 26, 2015 ECHO [facility] August 10, 2015 Problems Problem Type Condition ICD-9 Code Onset Dates Condition Status Assessment Essential (primary) hypertension I10 Active Problem Abnormal EKG R94.31 Active Problem Hypertensive heart disease I11.9 Active Problem Abnormal LFTs R79.89 Active Problem Body mass index (BMI) of 40.1 to 44.9 in adult Z68.41 Active Problem Pure hypercholesterolemia E78.0 Active Problem Essential (primary) hypertension I10 Active Problem Contact dermatitis L25.9 Active Problem Hypothyroidism E03.9 Active Problem Hepatitis C B19.20 Active Assessment Pure hypercholesterolemia E78.0 Active Assessment Hepatitis C B19.20 Active Assessment Hypothyroidism E03.9 Active Assessment Abnormal LFTs R79.89 Active Assessment Hypertensive heart disease I11.9 Active Medications Medication Code System Code Instructions Start Date End Date Status Dosage Levothyroxine Sodium [facility] [address]-08 50 MCG Orally Once a day August 02, 2015 Active 1 tablet Lisinopril-Hydrochlorothiazide [facility] [address]-06 10-12.5 MG Orally Once a day August 02, 2015 Active 1 tablet Aspir-81 [facility] [address]-41 81 MG Orally Once a day July 27, 2016 Active 1 tablet Metoprolol Tartrate [facility] [address]-22 25 MG Orally Twice a day Active 1 tablet Osteo Bi-Flex Adv Double St [facility] 14966-[address]55 1 tablet Orally daily Jul 15, 2015 Jan 13, 2016 Active as directed ProAir HFA [facility] [address]-98 108 (90 Base) MCG/ACT Inhalation every 4 hrs Active 2 puffs as needed Social History Social History Element Qualifiers Date Reported Do you take Aspirin, or a blood thinner . Yes I do take aspirin/ or a blood thinner November 01, 2015 Tobacco Use: . Are you a: former smoker, How much do you smoke? Greater than one pack per day, Pack Years 30, What year did you quit? 2006, Additional Findings: Tobacco Non-User Ex-very heavy cigarette smoker (40+/day) November 01, 2015 Use of recreational / street drugs? . Answer: No November 01, 2015 Marital Status: . November 01, 2015 Caffeine intake? . Status: Yes, What type: Coffee, 1 cup a day November 01, 2015 Do you exercise? . Answer: No November 01, 2015 Do you drink alcohol? . Status: No November 01, 2015 Travel outside [place]: . no November 01, 2015 Occupation: . Employed. [employer]PARTMENT [employer] November 01, 2015 Family history Qualifier Description Comment Date Reported Maternal Grandmother Comment not available November 01, 2015 Paternal Grandmother Comment not available November 01, 2015 Siblings Comment not available November 01, 2015 Maternal Grandfather Comment not available November 01, 2015 Children Comment not available November 01, 2015 Father alive Comment not available November 01, 2015 Paternal Grandfather Comment not available November 01, 2015 Mother alive Comment not available November 01, 2015 Other: Comment not available November 01, 2015 Vital Signs Date/Time: November 01, 2015 Weight 231.3 lbs Height 62.7 in Temperature 97.5 F Cardiac Monitoring Heart Rate 62 /min Blood Pressure Diastolic 83 mm Hg Blood Pressure Systolic 141 mm Hg Summary Purpose eClinicalWorks Submission
--- OUTSIDE RECORDS SUMMARY | 2018-10-09 08:26 | XMS REPORT ---
Author Author Trevor Zamudio Organization [employer] Address Unknown Phone Unavailable Care Team Providers Care Full Stack Python Developer Name Role Phone Trevor Zamudio CP Unavailable Allergies, Adverse Reactions, Alerts Substance Reaction Event Type N.K.D.A. Info Not Available Non Drug Allergy Encounters Encounter Location Date 2 WEEK FOLLOW UP [facility] August 02, 2015 4 week follow up [facility] September 08, 2015 1 month f/u [facility] November 01, 2015 Unknown [facility] Feb 25, 2016 Unknown [facility] Jul 15, 2015 Unknown [facility] Jul 26, 2015 ECHO [facility] August 10, 2015 Problems Problem Type [...] Active Problem Hepatitis C B19.20 Active Assessment Prediabetes R73.09 Active Assessment Abnormal LFTs R79.89 Active Assessment Pure hypercholesterolemia E78.0 Active Assessment Encounter for immunization Z23 Active Assessment Hypothyroidism E03.9 Active Medications Medication Code System Code Instructions Start Date End Date Status Dosage Metoprolol Tartrate [facility] [address]-37 25 MG Orally Twice a day Active [address] [facility] 43767168807 10-12.5 MG Orally Once a day Active [address] [facility] [address]-67 50 MCG Orally Once a day August 02, 2015 Active 1 tablet Lisinopril-Hydrochlorothiazide [facility] [address]-90 20-25 MG Orally Once a day Feb 25, 2016 Active [address] [facility] [address]-49 108 (90 Base) MCG/ACT Inhalation every 4 hrs Active 2 puffs as needed Aspir-81 [facility] [address]-70 81 MG Orally Once a day July 27, 2016 Active 1 tablet Social History Social History Element Qualifiers Date Reported Do you take Aspirin, or a blood thinner . Yes I do take aspirin/ or a blood thinner Feb 25, 2016 Tobacco Use: . Are you a: former smoker, How much do you smoke? Greater than one pack per day, Pack Years 30, What year did you quit? 2006, Additional Findings: Tobacco Non-User Ex-very heavy cigarette smoker (40+/day) Feb 25, 2016 Use of recreational / street drugs? . Answer: No Feb 25, 2016 Marital Status: . Feb 25, 2016 Caffeine intake? . Status: Yes, What type: Coffee, 1 cup a day Feb 25, 2016 Do you exercise? . Answer: No Feb 25, 2016 Do you drink alcohol? . Status: No Feb 25, 2016 Travel outside [place]: . 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
--- OUTSIDE RECORDS SUMMARY | 2018-10-09 08:26 | XMS REPORT ---
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 Name Role Phone Trevor Zamudio CP Unavailable [...] Active Problem Abnormal LFTs R79.89 Active Assessment Otitis media, unspecified chronicity, unspecified laterality, unspecified otitis media type H66.90 Active Assessment Encounter for general adult medical examination with abnormal findings Z00.01 Active Assessment Essential (primary) hypertension I10 Active Assessment BMI 40.0-44.9, adult Z68.41 Active Assessment Body mass index (BMI) of 40.1 to 44.9 in adult Z68.41 Active Assessment Nasal congestion R09.81 Active Assessment Bilateral otitis media, unspecified chronicity, unspecified otitis media type H66.93 Active Problem Hypertensive heart disease I11.9 Active Assessment Morbid obesity, unspecified obesity type E66.01 Active Problem Abnormal EKG R94.31 Active Medications Medication Code System Code Instructions Start Date End Date Status Dosage ProAir HFA [facility] [address]-70 108 (90 Base) MCG/ACT Inhalation every 4 hrs Active 2 puffs as needed Levothyroxine Sodium [facility] [address]-06 50 MCG Orally Once a day August 02, 2015 Active 1 tablet Aspirin [facility] [address]-93 81 MG Active TAKE 1 TABLET BY MOUTH ONCE DAILY Augmentin [facility] [address]-22 500-125 MG Orally every 12 hrs September 07, 2016 September 17, 2016 Active as directed Lisinopril-Hydrochlorothiazide [facility] [address]-76 20-25 MG Orally Once a day August 30, 2016 Active 1 tablet Metoprolol Succinate ER [facility] [address]-93 25 MG Orally twice a day (bid) Active 1 tablet Flonase NDC 0 50 MCG/DOSE Nasally Once a day September 07, 2016 Active 1 spray in each nostril Dary Allergy [facility] [address]-41 60 MG Orally Twice a day September 07, 2016 September 21, 2016 Active 1 tablet as needed Metoprolol Tartrate [facility] [address]-63 25 MG Orally Twice a day Active 1 tablet Metoprolol Succinate NDC 0 50 MG Orally Active not defined Pepcid [facility] [address]-37 20 MG Orally twice a day (bid) Jul 04, 2016 Active 1 tablet at bedtime Vital Signs Date/Time: September 07, 2016 BMI 40.77 Index Weight 228.0 lbs Height 62.7 in Temperature 98.2 F Cardiac Monitoring Heart Rate 62 /min Blood Pressure Diastolic 62 mm Hg Blood Pressure Systolic 120 mm Hg Results No Known Results Summary Purpose eClinicalWorks Submission
--- NOTE | 2018-10-09 10:58 | NUR ---
1058 Received pt in rm #10, Identifier x2 [facility] . Dr Adams Rt TR Band in place 11cc.Titration scheduled at 1130am No fix. No gross issues pain,pallor,pressure or dysrhythmia. Denies necessity to defecate or urinate. Left hand iv w/o s/s infiltration at kvo 500cc NS. Dc plans discussed with significant other at bedside. Copies with family Tolerating PO intake Back to baseline orientation.No co CP or SOB. ds/rn
--- NOTE | 2018-10-09 12:30 | NUR ---
1230 Air removal of RT band completed .No gross issues with pain,pallor,pressure or dysrhythmia. Sterile 2x2 and Tegaderm and Coban pressure dressing applied.Pulse present ,positive neuro- vascular function. Copies dc papers. assist dressing and discharged in significant other care. Aware of importance of f/o care. Escorted to car with RN escort. Denies cp or sob. ds/rn
--- NOTE | 2018-11-04 20:57 | Operative Report ---
DATE OF PROCEDURE: 10/09/2018 SURGEON: Matias Adams MD INDICATION FOR PROCEDURE: Chest pain, positive stress test. PROCEDURES PERFORMED: 1. Coronary angiography, right radial approach. 2. Left heart catheterization. PROCEDURE IN DETAILS: The patient was brought to the cardiac catheterization laboratory in a fasting state. Right wrist was prepped and draped in a sterile fashion. A 6-Bulgarian Slender sheath was inserted in the right radial artery using modified Seldinger technique. Coronary angiography and left heart catheterization were performed using a Hoot.Me radial catheter. All catheters removed over a wire. Multiple orthogonal views were taken of each coronary artery. Arteriotomy was closed using a TR band device. Case ended without any immediate complications. FINDINGS: Left main coronary artery: Large caliber, no CAD. Left anterior descending artery: Large caliber, wraps around the apex, one large diagonal branch, no significant CAD. Ramus intermedius is a medium size vessel, no significant CAD. Left circumflex: Nondominant vessel: One OM branch, no significant CAD. RCA: Large dominant RCA, medium size RPDA and RPL system. No significant CAD. Left ventricular end-diastolic pressure 10 mmHg. No gradient across the aortic valve. ESTIMATED BLOOD LOSS: 10 mL. SPECIMEN REMOVED: None. GRAFTS AND IMPLANTS: None. COMPLICATIONS: None. FINAL RECOMMENDATIONS: 1. Continue optimal medical therapy and risk factor control. 2. Follow up in clinic 2 weeks post procedure. Matias Adams MD KVP/MODL /[id number]
== END | disposition home or self-care (01) ==
LOC: CATH LAB 08:21
PROVIDERS: ATTEND Internal Medicine
DX: I25.10 Atherosclerotic heart disease of native coronary artery without angina pectoris (principal); I11.0 Hypertensive heart disease with heart failure; I50.9 Heart failure, unspecified; R94.39 Abnormal result of other cardiovascular function study; J45.909 Unspecified asthma, uncomplicated; E03.9 Hypothyroidism, unspecified; E78.5 Hyperlipidemia, unspecified; K73.9 Chronic hepatitis, unspecified; Z01.812 Encounter for preprocedural laboratory examination; Z79.82 Long term (current) use of aspirin; Z68.41 Body mass index [BMI] 40.0-44.9, adult; Z82.49 Family history of ischemic heart disease and other diseases of the circulatory system
CPT/HCPCS: 36415; 80053; 81025; 85025; 85610; 93458; C1887; J2001; J2250; J7030; Q9967